=== PATIENT | female | born 1955 | race American Indian/Alaskan Native ===

== ENCOUNTER 2016-09-23 01:00 | Emergency (ER) | payer MEDICARE, OTHER ==
[2016-09-23 01:00] VITALS: BMI 31.6
[2016-09-23 01:27] VITALS: O2SAT 100
--- NOTE | 2016-09-23 01:52 | C.PDOC ---
History Of Present Illness 61 year old patient, with a past medical history of Anxiety, Arthritis, Back Problems, Bronchitis, Depression, Hypercholesterolemia, and Sleep Apnea, presents to the ED complaining of diffuse body pain/musle spasms, particularly in her neck, upper back and chest. Patient admits this pain is similar to prior chronic pain symptoms, but more intense in nature. Patient typically takes Endocet for pain, ran out of medication and can only get refill tomorrow. She denies SOB, abdominal pain, nausea/vomiting/diarrhea, cough, fever. Time Seen by Provider: 09/23/16 01:48 Chief Complaint (Nursing): Chest Pain History Per: Patient History/Exam Limitations: no limitations Current Symptoms Are (Timing): Still Present Severity: Moderate Quality: "Pain" Exacerbating Factors: Movement Alleviating Factors: Other (endocet) Past Medical History Reviewed: Historical Data, Nursing Documentation, Vital Signs Vital Signs: Last Vital Signs Temp 98 F 09/23/16 01:20 Pulse 72 09/23/16 01:20 Resp 20 09/23/16 01:20 BP 131/71 09/23/16 01:20 Pulse Ox 100 09/23/16 03:39 - Medical History PMH: Anxiety, Arthritis, Back Problems, Bronchitis, Depression, Hypercholesterolemia, Sleep Apnea Surgical History: Back Surgery - [facility] Procedures INJECT/INFUSE NEC (11/15/13) Family History: States: No Known Family Hx - Social History Hx Tobacco Use: No Hx Alcohol Use: No Hx Substance Use: No - Immunization History Hx Tetanus Toxoid Vaccination: Yes Hx Influenza Vaccination: Yes Hx Pneumococcal Vaccination: No Review Of Systems Except As Marked, All Systems Reviewed And Found Negative. Cardiovascular: Positive for: Chest Pain. Negative for: Palpitations Respiratory: Negative for: Cough, Shortness of Breath Gastrointestinal: Negative for: Nausea, Vomiting, Abdominal Pain, Diarrhea Musculoskeletal: Positive for: Neck Pain, Back Pain Skin: Negative for: Rash Physical Exam - Physical Exam Appears: Well, Non-toxic, No Acute Distress, Other (speaking in full sentences) Skin: Warm, Dry, No Rash Head: Normacephalic Eye(s): bilateral: Normal Inspection Oral Mucosa: Moist Neck: Normal, Normal ROM, No Midline Cervical Tenderness, No Paracervical Tenderness, No Step Off Deformity, Supple Chest: Symmetrical Cardiovascular: Rhythm Regular Respiratory: Normal Breath Sounds, No Rales, No Rhonchi, No Wheezing Gastrointestinal/Abdominal: Normal Exam, Bowel Sounds, Soft, No Tenderness Back: Normal Inspection, Paraspinal Tenderness (lower cervical/upper thoracics) Extremity: Normal ROM, No Pedal Edema, No Calf Tenderness Extremity: Bilateral: Atraumatic, Normal Color And Temperature, Normal ROM Neurological/Psych: Oriented x3 Gait: Steady ED Course And Treatment ECG: Interpreted By Me, Viewed By Me (NSR 66 bpm, normal axis, no acute ST/T wave changes) ECG Interpretation: No Acute Changes O2 Sat by Pulse Oximetry: 100 (RA) Pulse Ox Interpretation: Normal - Radiology CXR: Interpreted by Me, Viewed By Me (no infiltrates/effusions) Progress Note: EKG, CXR ordered and reviewed. Patient given IM Toradol and PO Valium. Albuterol nebulizer treatment given at her request - no wheezing on physical exam. Reevaluation Time: 03:40 Reassessment Condition: Improved (On reassessment, patient is sleeping on stretcher comfortably. Patient easily arousable, states her pain has improved and she feels better. Rxs for Naprosyn and Valium given, as well as albuterol neb ampules and nebhulizer facemask. Patient instructed to follow up with PMD in 1-2 days, and understands she should return to ED if symptoms worsen.) Medical Decision Making Medical Decision Makin08/25/2016 2 08/25/2016 CLONAZEPAM 1 MG TABLET 90.0 30 LE DEL [id number] [place] ( [id number]) 0 [place] 08/25/2016 2 08/25/2016 ENDOCET 10-325 MG TABLET 90.0 30 MARTA CASANOVA [id number] [place] ( [id number]) 0 45.0 [place] 07/28/2016 2 07/28/2016 ZOLPIDEM TARTRATE 10 MG TABLET 30.0 30 MARTA DUN [id number] [place] ([id number]) 0 [place] 07/28/2016 2 07/28/2016 ENDOCET 10-325 MG TABLET 90.0 30 MARTA CASANOVA [id number] [place] ( [id number]) 0 45.0 [place] 07/22/2016 2 07/22/2016 CLONAZEPAM 1 MG TABLET 90.0 30 LE DEL [id number] [place] ( [id number]) 0 [place] Disposition Counseled Patient/Family Regarding: Studies Performed, Diagnosis, Need For Followup, Rx Given - Disposition Referrals: Tenzin Ba MD [Staff Provider] - Disposition Time: 03:40 Condition: STABLE Additional Instructions: FOLLOW UP WITH YOUR DOCTOR IN 1-2 DAYS USE MEDICATIONS NEEDED RETURN TO ER IF SYMPTOMS WORSEN Prescriptions: Albuterol 0.5% [Albuterol 0.5% Inhal Christin (2.5 mg/0.5 ml) UD] 2.5 mg IH Q6 PRN # 1 bottle PRN Reason: Wheezing Naproxen [Naprosyn Tab] 375 mg PO BID PRN #15 tab PRN Reason: pain diaZEpam [Valium] 5 mg PO BID PRN #10 tab PRN Reason: muscle relaxant Instructions: Chronic Pain (ED) Print Language: PASHTO - POA Present On Arrival: None - Clinical Impression Clinical Impression: Muscle spasm, Chronic pain - Scribe Statement The provider has reviewed the documentation as recorded by the Davidibantony Sandy Provider Attestation: All medical record entries made by the Davidibantony were at my direction and personally dictated by me. I have reviewed the chart and agree that the record accurately reflects my personal performance of the history, physical exam, medical decision making, and the department course for this patient. I have also personally directed, reviewed, and agree with the discharge instructions and disposition.
[2016-09-23] MEDS ORDERED: Albuterol 0.083% Inhal Sol (2.5 mg/3 mL) UD IH STA (02:06)
[2016-09-23] MEDS ORDERED: Albuterol 0.083% Inhal Sol (2.5 mg/3 mL) UD ONE (02:21)
[2016-09-23 04:08] VITALS: BP 137/88; PULSE 78; RESP 16; TEMP 98.1
--- NOTE | 2016-09-23 08:39 | RAD ---
PROCEDURE: CHEST RADIOGRAPH, 1 VIEW HISTORY: Chest pain COMPARISON: None available. FINDINGS: LUNGS: Clear. PLEURA: No pneumothorax or pleural fluid seen. CARDIOVASCULAR: Normal. OSSEOUS STRUCTURES: No significant abnormalities. VISUALIZED UPPER ABDOMEN: Normal. OTHER FINDINGS: None. IMPRESSION: No active disease.
--- NOTE | 2016-09-23 11:39 | CARD ---
APPROVED REPORT EKG Measurement Heart [id number] <Conclusion> Normal sinus rhythm Moderate voltage criteria for LVH, may be normal variant Cannot rule out Septal infarct, age undetermined Abnormal ECG
== END 2016-09-23 04:14 | disposition home or self-care (01) ==
LOC: C.ER 01:00
DX: M62.838 Other muscle spasm (principal); G89.29 Other chronic pain
CPT/HCPCS: 71010; 93005; 94640; 96372; 99284; J1885

== ENCOUNTER 2017-04-10 13:41 | Emergency (ER) | payer OTHER, MEDICARE ==
[2017-04-10 13:41] VITALS: BMI 31.6
[2017-04-10 13:49] VITALS: TEMP 97.7
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
[2017-04-10] MEDS ORDERED: Bacitracin 500 Units/gm Oint Foilpak UD TOP ONE (15:14)
[2017-04-10] MEDS ORDERED: Bacitracin 500 Units/gm Oint Foilpak UD ONE (16:13)
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
[2017-04-10 21:00] VITALS: BP 115/85; PULSE 84; RESP 16
--- NOTE | 2017-04-11 08:01 | RAD ---
Bilateral hips and right hip four views History: Fall. Comparison: None available. Findings: Right hip: Right total hip arthroplasty. Prominent heterotopic bone and productive bone formation seen along the lateral aspect of the prosthesis. Periacetabular lucency adjacent to the right metallic acetabulum. Additional lucency seen adjacent to the proximal femoral shaft component. Left hip: Moderate degenerative changes with joint space narrowing and subchondral sclerosis. Productive change at the pubic symphysis with bony sclerosis. Postsurgical changes in the spine. Calcified phleboliths in the pelvis. Osteitis pubis. Impression: Postsurgical and degenerative changes as described. If pain persists, consider further evaluation CT scan or MRI.
[2017-04-14 23:21] VITALS: O2SAT 100
== END 2017-04-10 20:59 | disposition home or self-care (01) ==
LOC: C.ER 13:41
DX: S83.91XA Sprain of unspecified site of right knee, initial encounter (principal); S80.211A Abrasion, right knee, initial encounter; M54.2 Cervicalgia; V09.00XA Pedestrian injured in nontraffic accident involving unspecified motor vehicles, initial encounter; Y92.481 Parking lot as the place of occurrence of the external cause
CPT/HCPCS: 72125; 73521; 73562; 73700; 90471; 90715; 96372; 99284; J1885

== ENCOUNTER 2017-05-16 07:42 | Emergency (ER) | payer MEDICARE, OTHER ==
--- NOTE | 2017-05-16 08:06 | C.PDOC ---
History Of Present Illness 62 y/o female hx of chronic back pain , hip replacement, and back surgeries. The patient presents to the ED c/o of back/hip pain. The patient states she is scheduled for an appointment on Thursday with [place] pain management. The patient denies dizziness, swelling, rash, nausea, vomiting, and fever. Patient ambulates with cane. Time Seen by Provider: 05/16/17 07:48 Chief Complaint (Nursing): Back Pain History Per: Patient History/Exam Limitations: no limitations Onset/Duration Of Symptoms: Days Current Symptoms Are (Timing): Still Present Severity: Mild Previous Symptoms: Back Pain Recent travel outside of the [place]: No Additional History Per: Patient Past Medical History Reviewed: Historical Data, Nursing Documentation, Vital Signs Vital Signs: Last Vital Signs Temp 98.1 F 05/16/17 09:16 Pulse 80 05/16/17 09:16 Resp 18 05/16/17 09:16 BP 102/60 05/16/17 09:16 Pulse Ox 99 05/16/17 09:16 - Medical History PMH: Anxiety, Arthritis, Back Problems, Bronchitis, Depression, Hypercholesterolemia, Sleep Apnea Denies: Diabetes, Hepatitis, HIV, HTN, Seizures, Sexually Transmitted Disease Surgical History: Back Surgery Other Surgeries: hip surgery - [facility] Procedures INJECT/INFUSE NEC (11/15/13) Family History: States: No Known Family Hx - Social History Hx Tobacco Use: No Hx Alcohol Use: No Hx Substance Use: No - Immunization History Hx Tetanus Toxoid Vaccination: Yes Hx Influenza Vaccination: Yes Hx Pneumococcal Vaccination: No Review Of Systems Except As Marked, All Systems Reviewed And Found Negative. Constitutional: Negative for: Fever Cardiovascular: Negative for: Chest Pain Respiratory: Negative for: Cough, Shortness of Breath Gastrointestinal: Negative for: Nausea, Vomiting Musculoskeletal: Positive for: Back Pain Skin: Negative for: Rash Physical Exam - Physical Exam Appears: Non-toxic, Other (mild painful distress ) Skin: Warm, Dry Head: Atraumatic, Normacephalic Eye(s): bilateral: PERRL Oral Mucosa: Moist Neck: Supple Chest: Symmetrical Cardiovascular: Rhythm Regular Respiratory: Normal Breath Sounds, No Rales, No Rhonchi, No Wheezing Gastrointestinal/Abdominal: Soft, No Tenderness, No Guarding, No Rebound Back: Paraspinal Tenderness, Straight Leg Raising (not able to lift up the right leg ), Other (diffused paralumbar tenderness) Extremity: Capillary Refill (2<sec.), Other (not able to lift up the right leg ) Neurological/Psych: Oriented x3, Normal Speech, Normal Cognition Gait: Other (a cane for assistance, and decreased not able to lift up the right leg) ED Course And Treatment O2 Sat by Pulse Oximetry: 98 (RA) Progress Note: Upon reassessment,the patient is afebrile. The patient is perscribed Toradol and Flexeril. The patient is advised to have 1-2 day follow up with her [employer]PER[employer] for further evaluation. Reassessment Condition: Improved Disposition Counseled Patient/Family Regarding: Diagnosis, Need For Followup, Rx Given - Disposition Referrals: [facility] [Outside] Disposition: HOME/ ROUTINE Disposition Time: 09:00 Condition: IMPROVED Additional Instructions: Follow up with Pain management for scheduled appointment on thursday Take medication as directed Prescriptions: Cyclobenzaprine [Cyclobenzaprine HCl] 10 mg PO Q8 PRN #12 tab PRN Reason: Pain, Mild (1-3) Naproxen [Naprosyn] 1 tab PO BID PRN #25 tab PRN Reason: Pain Instructions: Chronic Back Pain (ED) Forms: [facility] (Estonian) - POA Present On Arrival: None - Clinical Impression Clinical Impression: Low back pain, Chronic pain - PA / [employer] / Resident Statement MD/DO has examined the patient and agrees with the treatment plan. - Scribe Statement The provider has reviewed the documentation as recorded by the Scribantony Atkinson All medical record entries made by the Davidibantony were at my direction and personally dictated by me. I have reviewed the chart and agree that the record accurately reflects my personal performance of the history, physical exam, medical decision making, and the department course for this patient. I have also personally directed, reviewed, and agree with the discharge instructions and disposition.
[2017-05-16 08:07] VITALS: BMI 29.2
[2017-05-16 09:20] VITALS: BP 102/60; PULSE 80; RESP 18; TEMP 98.1
[2017-05-16 17:34] VITALS: O2SAT 98
== END 2017-05-16 09:20 | disposition home or self-care (01) ==
LOC: C.ER 07:42
DX: G89.29 Other chronic pain (principal); M54.5 Low back pain; E78.00 Pure hypercholesterolemia, unspecified
CPT/HCPCS: 96372; 99284; J1885

== ENCOUNTER 2017-07-31 12:02 | Emergency (ER) | payer OTHER ==
[2017-07-31 12:03] VITALS: BMI 31.6
== END 2017-07-31 12:35 | disposition left against medical advice (07) ==
LOC: C.ER 12:02
DX: Z02.89 Encounter for other administrative examinations (principal); M79.1 Myalgia

== ENCOUNTER 2017-09-22 17:43 | Inpatient (IN) | payer MEDICARE, OTHER ==
[2017-09-22 18:20] VITALS: BMI 29.2
[2017-09-22] MEDS ORDERED: Aspirin 325 mg EC Tablets PO STA (20:29)
[2017-09-22] MEDS ORDERED: Aspirin 325 mg EC Tablets PO ONE (20:43)
[2017-09-22 20:49] LABS: BASO # 0.1 K/uL (0.0-0.2); BASO % 1.2 % (0.0-2.0); EOS # 0.2 K/uL (0.0-0.7); HEMOGLOBIN 11.1 g/dL (11.0-16.0); LYMPH # 2.6 K/uL (1.0-4.3); LYMPH % 49.2 % (20.0-40.0); MEAN CELL VOLUME 85.3 fL (81.0-99.0); MEAN CORPUSCULAR HEMOGLOBIN 28.7 pg (27.0-31.0); MEAN CORPUSCULAR HGB CONC 33.7 g/dL (33.0-37.0); MEAN PLATELET VOLUME 6.4 fL (7.2-11.7); MONO # 0.4 K/uL (0.0-0.8); MONO % 6.7 % (0.0-10.0); NEUT # 2.1 K/uL (1.8-7.0); NEUT % 39.9 % (50.0-75.0); NRBC % 0.2 % (0.0-2.0); RBC 3.86 Mil/uL (3.80-5.20); WHITE BLOOD COUNT 5.3 K/uL (4.8-10.8)
[2017-09-22 20:59] LABS: PROTHROMBIN TIME 11.1 SECONDS (9.7-12.2)
[2017-09-22 21:02] LABS: CALCIUM 8.8 mg/dl (8.6-10.4); GFR AFRICAN-AMERICAN > 60; GFR NON-AFRICAN AMERICAN 50
--- NOTE | 2017-09-22 23:02 | C.PDOC ---
Time Seen by Provider: 09/22/17 20:15 Chief Complaint (Nursing): Chest Pain History Per: Patient Onset/Duration Of Symptoms: Hrs Current Symptoms Are (Timing): Still Present Severity: Moderate Quality: Tightness, "Pain" Associated Symptoms: Dyspnea Modifying Factors: Other Indicated Below Alleviating Factors: None Additional History Per: Prior Records Past Medical History Reviewed: Historical Data, Nursing Documentation, Vital Signs Vital Signs: Last Vital Signs Temp 97.8 F 09/22/17 18:21 Pulse 67 09/22/17 18:21 Resp 18 09/22/17 18:21 BP 123/80 09/22/17 18:21 Pulse Ox 100 09/22/17 18:21 - Medical History PMH: Anxiety, Arthritis, Back Problems, Bronchitis, Depression, Hypercholesterolemia, Sleep Apnea, Chronic Pain Surgical History: Back Surgery - [facility] Procedures INJECT/INFUSE NEC (11/15/13) Family History: States: Unknown Family Hx - Social History Hx Tobacco Use: No Hx Alcohol Use: No Hx Substance Use: No - Immunization History Hx Tetanus Toxoid Vaccination: Yes Hx Influenza Vaccination: Yes Hx Pneumococcal Vaccination: No Review Of Systems Except As Marked, All Systems Reviewed And Found Negative. Constitutional: Negative for: Fever, Weakness Cardiovascular: Positive for: Chest Pain Respiratory: Negative for: Hemoptysis Gastrointestinal: Negative for: Vomiting, Abdominal Pain Skin: Negative for: Rash Neurological: Negative for: Weakness, Numbness, Seizures, Altered Mental Status Physical Exam - Physical Exam Appears: Non-toxic, No Acute Distress Skin: Normal Color, Warm, Dry, No Rash Head: Atraumatic, Normacephalic Eye(s): bilateral: PERRL, EOMI Neck: Normal ROM, Supple Cardiovascular: Rhythm Regular Respiratory: Normal Breath Sounds, No Accessory Muscle Use Gastrointestinal/Abdominal: Soft, No Tenderness Extremity: Normal ROM, No Deformity Neurological/Psych: Oriented x3, Normal Motor, Normal Sensation ED Course And Treatment - Laboratory Results Result Diagrams: 09/22/17 20:40 09/22/17 20:40 ECG: Interpreted By Me, Viewed By Me ECG Rhythm: Sinus Rhythm, Nonspecific Changes ECG Interpretation: No Acute Changes Rate From EC O2 Sat by Pulse Oximetry: 100 Pulse Ox Interpretation: Normal - Radiology CXR: Interpreted by Me, Viewed By Me CXR Interpretation: Yes: No Acute Disease Progress - Interventions Interventions:: Observation - Medications Administered Oral: Aspirin - Data Reviewed Data Reviewed: Lab, Diagnostic imaging, EKG, Old records - Patient Status Patient status: Partially improved - Continuity of Care Discussed patient case with:: Patient, ED Nurse, PMD Disposition Discussed With : Tenzin Ba Comment: He accepted pt on his service. Doctor Will See Patient In The: Hospital Counseled Patient/Family Regarding: Studies Performed, Diagnosis - Disposition Disposition: HOSPITALIZED Disposition Time: 23:03 Condition: FAIR - Clinical Impression Clinical Impression: Chest pain
[2017-09-22 23:12] LABS: BLOOD UREA NITROGEN 17 mg/dL (7-17)
[2017-09-22 23:13] LABS: ALT/SGPT 58 U/L (9-52); AST/SGOT 53 U/L (14-36)
[2017-09-22] MEDS ORDERED: Morphine 4 MG/ML VIAL ONE (23:22)
[2017-09-23] MEDS ORDERED: Enoxaparin 40 mg Syringe SC ONE (00:52)
[2017-09-23] MEDS ORDERED: Enoxaparin 40 mg Syringe ONE (01:12)
--- NOTE | 2017-09-23 06:59 | RAD ---
Chest x-ray single frontal view History: Chest pain. Comparison: 09/23/2016 Findings: Mild venous congestion. Mild patchy increased markings at the left lung base which may represent confluence shadows with ribs and vessels. Tortuous aorta. Degenerative changes in the spine. Impression: Mild venous congestion. Mild patchy increased markings at the left lung base which may represent confluence shadows with ribs and vessels. Tortuous aorta.
[2017-09-23] MEDS: Ranolazine 500 mg Extended Release Tablets PO SCH ×2 (09:00→17:27)
[2017-09-23] MEDS ORDERED: Pneumococcal 23-Valent Vaccine IM ONE (09:39)
[2017-09-23] MEDS: Enoxaparin 40 mg Syringe SC SCH (10:22)
[2017-09-23] MEDS: Oxycodone/Acetaminophen 5/325 mg Tab PO PRN ×2 (11:51→18:23)
--- NOTE | 2017-09-23 12:51 | CP.PCM.HP ---
History of Present Illness - History of Present Illness History of Present Illness: admitted for ACS hx HTN, HLD , OBESITY pt known to Dr Ba work up in progress Present on Admission - Present on Admission Any Indicators Present on Admission: No History of DVT/PE: No History of Uncontrolled Diabetes: No Urinary Catheter: No Decubitus Ulcer Present: No History Surgical Site Infection Following: None Review of Systems - Review of Systems All systems: reviewed and no additional remarkable complaints except - Constitutional Constitutional: As Per HPI - EENT Eyes: absent: As Per HPI, Blind Spots, Blurred Vision, Change in Vision, Decreased Night Vision, Diplopia, Discharge, Dry Eye, Exophthalmos, Floaters, Irritation, Itchy Eyes, Loss of Peripheral Vision, Pain, Photophobia, Requires Corrective Lenses, Sees Flashes, Spots in Vision, Tunnel Vision, Other Visual Disturbances, Loss of Vision, Other Ears: absent: As Per HPI, Decreased Hearing, Ear Discharge, Ear Pain, Tinnitus, Abnormal Hearing, Disequilibrium, Dizziness, Other Nose/Mouth/Throat: absent: As Per HPI, Epistaxis, Nasal Congestion, Nasal Discharge, Nasal Obstruction, Nasal Trauma, Nose Pain, Post Nasal Drip, Sinus Pain, Sinus Pressure, Bleeding Gums, Change in Voice, Dental Pain, Dry Mouth, Dysphagia, Halitosis, Hoarsness, Lip Swelling, Mouth Lesions, Mouth Pain, Odynophagia, Sore Throat, Throat Swelling, Tongue Swelling, Facial Pain, Neck Pain, Neck Mass, Other - Breasts Breasts: absent: As Per HPI, Change in Shape, Mass, Pain, Nipple Discharge, Nipple Inversion, Skin Changes, Swelling, Other - Cardiovascular Cardiovascular: As Per HPI - Respiratory Respiratory: Dyspnea on Exertion - Gastrointestinal Gastrointestinal: absent: As Per HPI, Abdominal Pain, Belching, Bloating, Change in Bowel Habits, Change in Stool Character, Coffee Ground Emesis, Constipation, Cramping, Diarrhea, Dyspepsia, Dysphagia, Early Satiety, Excessive Flatus, Fecal Incontinence, Heartburn, Hematemesis, Hematochezia, Loose Stools, Melena, Nausea, Odynophagia, Temesmus, Vomiting, Other - Reproductive: Female Reproductive:Female: absent: As Per HPI, Amenorrhea, Amenorrhea/ Control, Currently Menstual, Cycle <21 Days, Cycle >35 Days, Cycle Variable, Menses 1-7 Days, Menses >/= 8 Days, Menses Variable, Cycle > 4 Weeks Between, No Menses for 6 Months, Heavy Menses, Light Menses, Normal Menses, Spotting Between Cycles , S/P Hysterectomy, Menopausal, Post Menopausal, Premenarche, Abnormal Vaginal Bleeding, Dysmenorrhea, Dyspareunia, Genital Lesions, Genital Pruritis, Pelvic Pain, Prolapse Symptoms, Sexual Dysfunction, Vaginal Discharge, Vaginal Dryness , Vaginal Odor, Vaginal Pruritis, Other - Menstruation Menstruation: absent: As Per HPI, Amenorrhea, Amenorrhea/ Control, Currently Menstual, Cycle <21 Days, Cycle >35 Days, Cycle Variable, Menses 1-7 Days, Menses >/= 8 Days, Menses Variable, Cycle > 4 Weeks Between, No Menses for 6 Months, Heavy Menses, Light Menses, Normal Menses, Spotting Between Cycles , S/P Hysterectomy, Menopausal, Post Menopausal, Premenarche, Abnormal Vaginal Bleeding, Dysmenorrhea, Other - Musculoskeletal Musculoskeletal: As Per HPI - Integumentary Integumentary: absent: As Per HPI, Acne, Alopecia, Bleeding Lesions, Change in Hair, Change in Nails, Change in Pigmentation, Changing Lesions, Dry Skin, Erythema, Furuncle, Hirsutism, Lesions, New Lesions, Non-Healing Lesions, Photosensitivity, Pruritus, Rash, Skin Pain, Skin Ulcer, Sores, Striae, Swelling , Unusual Bruising, Wounds, Jaundice, Other - Neurological Neurological: As Per HPI - Psychiatric Psychiatric: absent: As Per HPI, Abnormal Sleep Pattern, Anhedonia, Anxiety, Auditory Hallucinations, Behavioral Changes, Change in Appetite, Change in Libido, Confusion, Depression, Difficulty Concentrating, Hallucinations, Homicidal Ideation, Hopelessness, Irritability, Memory Loss, Mood Swings, Panic Attacks, Paranoia, Suicidal Ideation, Visual Hallucinations, Tactile Hallucinations, Other - Endocrine Endocrine: absent: As Per HPI, Change in Body Appearance, Change in Libido, Cold Intolorance, Deepening of Voice, Excessive Sweating, Fatigue, Flushing, Heat Intolorance, Increase in Ring/Shoe/Hat Size, Palpitations, Polydipsia, Polyphagia, Polyuria, Other - Hematologic/Lymphatic Hematologic: absent: As Per HPI, Easy Bleeding, Easy Bruising, Lymphadenopathy, Other Past Patient History - Infectious Disease Hx of Infectious Diseases: None - Past Medical History & Family History Past Medical History?: Yes - Past Social History Smoking Status: Never Smoked - CARDIAC Hx Hypercholesterolemia: Yes - PULMONARY Hx Bronchitis: Yes Hx Sleep Apnea: Yes - NEUROLOGICAL Hx Seizures: No - HEMATOLOGICAL/ONCOLOGICAL Hx Human Immunodeficiency Virus (HIV): No - MUSCULOSKELETAL/RHEUMATOLOGICAL Hx Arthritis: Yes Hx Falls: No - GENITOURINARY/GYNECOLOGICAL Hx Sexually Transmitted Disorders: No - PSYCHIATRIC Hx Anxiety: Yes Hx Depression: Yes Hx Substance Use: No - SURGICAL HISTORY Other/Comment: HIP SURGERY - ANESTHESIA Hx Anesthesia: Yes Hx Anesthesia Reactions: No Hx Malignant Hyperthermia: No Meds Allergies/Adverse Reactions: Allergies Allergy/AdvReac Type Severity Reaction Status Date / Time tizanidine Allergy Intermediate RASH Verified 09/22/17 18:19 Physical Exam - Constitutional Appears: Chronically Ill - Head Exam Head Exam: ATRAUMATIC, NORMOCEPHALIC - Eye Exam Eye Exam: PERRL. absent: Scleral icterus - ENT Exam ENT Exam: Mucous Membranes Dry, Normal External Ear Exam - Neck Exam Neck exam: Negative for: Lymphadenopathy - Respiratory Exam Respiratory Exam: Decreased Breath Sounds, Clear to Auscultation Bilateral - Cardiovascular Exam Cardiovascular Exam: REGULAR RHYTHM, +S1, +S2 - GI/Abdominal Exam GI & Abdominal Exam: Diminished Bowel Sounds, Soft. absent: Tenderness - Rectal Exam Rectal Exam: Deferred - Exam Exam: NORMAL INSPECTION - Extremities Exam Extremities exam: Positive for: pedal pulses present. Negative for: calf tenderness, pedal edema, tenderness - Back Exam Back exam: absent: CVA tenderness (L), CVA tenderness (R) - Neurological Exam Neurological exam: Alert, CN II-XII Intact, Oriented x3, Reflexes Normal - Psychiatric Exam Psychiatric exam: Depressed - Skin Skin Exam: Dry Results - Vital Signs Recent Vital Signs: Last Vital Signs Temp 97.8 F 09/23/17 07:40 Pulse 75 09/23/17 10:00 Resp 14 09/23/17 08:00 BP 108/69 09/23/17 10:25 Pulse Ox 98 09/23/17 07:03 - Labs Result Diagrams: 09/23/17 14:46 09/23/17 14:46 Labs: Laboratory Results - last 24 hr 09/22/17 09/22/17 09/22/17 20:40 20:40 20:40 WBC 5.3 RBC 3.86 Hgb 11.1 Hct 32.9 L MCV 85.3 MCH 28.7 MCHC 33.7 RDW 15.0 H Plt Count 281 MPV 6.4 L Neut % (Auto) 39.9 L Lymph % (Auto) 49.2 H Cache % (Auto) 6.7 Eos % (Auto) 3.0 Baso % (Auto) 1.2 Neut # (Auto) 2.1 Lymph # (Auto) 2.6 Cache # (Auto) 0.4 Eos # (Auto) 0.2 Baso # (Auto) 0.1 PT 11.1 INR 1.0 APTT 31 Sodium 140 Potassium 4.7 Chloride 106 Carbon Dioxide 22 Anion Gap 17 BUN 17 Creatinine 1.1 Est GFR ( Amer) > 60 Est GFR (Non-Af Amer) 50 Random Glucose 78 Calcium 8.8 Total Bilirubin 0.7 AST 53 H ALT 58 H D Alkaline Phosphatase 82 Troponin I < 0.0120 NT-Pro-B Natriuret Pep 13.0 Total Protein 8.2 Albumin 4.0 Globulin 4.2 H Albumin/Globulin Ratio 1.0 09/23/17 04:22 WBC RBC Hgb Hct MCV MCH MCHC RDW Plt Count MPV Neut % (Auto) Lymph % (Auto) Cache % (Auto) Eos % (Auto) Baso % (Auto) Neut # (Auto) Lymph # (Auto) Cache # (Auto) Eos # (Auto) Baso # (Auto) PT INR APTT Sodium Potassium Chloride Carbon Dioxide Anion Gap BUN Creatinine Est GFR ( Amer) Est GFR (Non-Af Amer) Random Glucose Calcium Total Bilirubin AST ALT Alkaline Phosphatase Troponin I < 0.0120 NT-Pro-B Natriuret Pep Total Protein Albumin Globulin Albumin/Globulin Ratio Assessment & Plan (1) Chest pain Status: Acute (2) Anxiety Status: Acute (3) Cervicalgia Status: Acute (4) Chronic pain Status: Acute (5) Depression (emotion) Status: Acute (6) Joint pain Status: Acute (7) Low back pain Status: Acute - Assessment and Plan (Free Text) Assessment: cont tele monitoring will likely need cardiac cath Decision To Admit - Pt Status Changed To: Hospital Disposition Of: Inpatient - Admit Certification Admit to Inpatient:: After my assessment, the patient will require hospitalization for at least two midnights. This is because of the severity of symptoms shown, intensity of services needed, and/or the medical risk in this patient being treated as an outpatient. - InPatient: Physician Admission Certification:: i certify patient requires in patient care - . Bed Request Type: Telemetry
[2017-09-23 14:59] LABS: HEMOGLOBIN 11.7 g/dL (11.0-16.0); MEAN CELL VOLUME 85.6 fL (81.0-99.0); MEAN CORPUSCULAR HEMOGLOBIN 28.4 pg (27.0-31.0); MEAN CORPUSCULAR HGB CONC 33.2 g/dL (33.0-37.0); MEAN PLATELET VOLUME 6.1 fL (7.2-11.7); RBC 4.11 Mil/uL (3.80-5.20); RED CELL DISTRIBUTION WIDTH 15.5 % (11.5-14.5); WHITE BLOOD COUNT 5.3 K/uL (4.8-10.8)
[2017-09-23 15:14] LABS: BLOOD UREA NITROGEN 16 mg/dL (7-17); CALCIUM 9.2 mg/dl (8.6-10.4); GFR AFRICAN-AMERICAN 55; GFR NON-AFRICAN AMERICAN 46
[2017-09-23 15:21] LABS: CK-MB 1.49 ng/mL (0.0-3.38)
[2017-09-23] MEDS: POLYETHYLENE GLYCOL 3350 17 GM/Dose PACKET PO SCH (18:20)
--- NOTE | 2017-09-23 20:46 | CARD ---
APPROVED REPORT EKG Measurement Heart [id number] <Conclusion> Normal sinus rhythm Moderate voltage criteria for LVH, may be normal variant Borderline ECG
[2017-09-23] MEDS ORDERED: Magnesium Hydroxide Susp 30 ml UD PO ONE (22:30)
--- NOTE | 2017-09-23 22:39 | CP.PCM.CON ---
History of Present Illness - History of Present Illness History of Present Illness: CC chest pain HPI 62 y/o AAF admitted with on and squeezing mid-sternal chest pain Review of Systems - Cardiovascular Cardiovascular: Chest Pain, Dyspnea on Exertion - Respiratory Respiratory: absent: Chest Congestion, Pain with Coughing - Gastrointestinal Gastrointestinal: absent: Change in Bowel Habits - Musculoskeletal Musculoskeletal: Back Pain Past Patient History - Infectious Disease Hx of Infectious Diseases: None - Past Medical History & Family History Past Medical History?: Yes - Past Social History Smoking Status: Never Smoked - CARDIAC Hx Hypercholesterolemia: Yes - PULMONARY Hx Bronchitis: Yes Hx Sleep Apnea: Yes - NEUROLOGICAL Hx Seizures: No - HEMATOLOGICAL/ONCOLOGICAL Hx Human Immunodeficiency Virus (HIV): No - MUSCULOSKELETAL/RHEUMATOLOGICAL Hx Arthritis: Yes Hx Falls: No - GENITOURINARY/GYNECOLOGICAL Hx Sexually Transmitted Disorders: No - PSYCHIATRIC Hx Anxiety: Yes Hx Depression: Yes Hx Substance Use: No - SURGICAL HISTORY Other/Comment: HIP SURGERY - ANESTHESIA Hx Anesthesia: Yes Hx Anesthesia Reactions: No Hx Malignant Hyperthermia: No Meds Allergies/Adverse Reactions: Allergies Allergy/AdvReac Type Severity Reaction Status Date / Time tizanidine Allergy Intermediate RASH Verified 09/22/17 18:19 - Medications Medications: Current Medications Enoxaparin Sodium (Lovenox) 40 mg SC DAILY [facility] Last Admin: 09/23/17 10:22 Dose: 40 mg Metoprolol Tartrate (Lopressor) 25 mg PO BID [facility] Last Admin: 09/23/17 18:24 Dose: 25 mg Oxycodone/Acetaminophen (Percocet 5/325 Mg Tab) 1 tab PO Q6H PRN PRN Reason: Pain, moderate (4-7) Stop: 09/26/17 11:24 Last Admin: 09/23/17 18:23 Dose: 1 tab Pneumococcal Polyvalent Vaccine (Pneumovax 23 Vaccine) 0.5 ml IM .ONCE ONE Stop: 09/25/17 12:01 Polyethylene Glycol (Miralax) 17 gm PO DAILY [facility] Last Admin: 09/23/17 18:20 Dose: 17 gm Ranolazine (Ranexa) 500 mg PO BID [facility] Last Admin: 09/23/17 17:27 Dose: 500 mg Rosuvastatin Calcium (Crestor) 10 mg PO HS [facility] Last Admin: 09/23/17 21:50 Dose: 10 mg Zolpidem Tartrate (Ambien) 5 mg PO HS PRN PRN Reason: Insomnia Last Admin: 09/23/17 21:50 Dose: 5 mg Physical Exam - Constitutional Appears: Non-toxic - Head Exam Head Exam: NORMAL INSPECTION - Eye Exam Eye Exam: absent: Scleral icterus - ENT Exam ENT Exam: Mucous Membranes Moist - Neck Exam Neck exam: Positive for: Full Rom - Respiratory Exam Respiratory Exam: NORMAL BREATHING PATTERN - Cardiovascular Exam Cardiovascular Exam: REGULAR RHYTHM - GI/Abdominal Exam GI & Abdominal Exam: Normal Bowel Sounds - Extremities Exam Extremities exam: Positive for: pedal edema - Neurological Exam Neurological exam: Alert, Oriented x3 Results - Vital Signs Recent Vital Signs: Last Vital Signs Temp 98.1 F 09/23/17 20:00 Pulse 52 L 09/23/17 21:38 Resp 16 09/23/17 21:38 BP 110/67 09/23/17 21:38 Pulse Ox 98 09/23/17 07:03 - Labs Result Diagrams: 09/23/17 14:46 09/23/17 14:46 Labs: Laboratory Results - last 24 hr 09/22/17 09/22/17 09/23/17 20:40 20:40 04:22 WBC RBC Hgb Hct MCV MCH MCHC RDW Plt Count MPV PT 11.1 INR 1.0 APTT 31 Sodium 140 Potassium 4.7 Chloride 106 Carbon Dioxide 22 Anion Gap 17 BUN 17 Creatinine Est GFR ( Amer) Est GFR (Non-Af Amer) Random Glucose Calcium AST 53 H ALT 58 H D Alkaline Phosphatase 82 Total Creatine Kinase CK-MB (Mass) Troponin I < 0.0120 < 0.0120 Total Protein 8.2 Albumin 4.0 Globulin 4.2 H Albumin/Globulin Ratio 1.0 09/23/17 09/23/17 14:46 14:46 WBC 5.3 RBC 4.11 Hgb 11.7 Hct 35.2 MCV 85.6 MCH 28.4 MCHC 33.2 RDW 15.5 H Plt Count 279 MPV 6.1 L PT INR APTT Sodium 140 Potassium 4.9 Chloride 104 Carbon Dioxide 27 Anion Gap 14 BUN 16 Creatinine 1.2 Est GFR ( Amer) 55 Est GFR (Non-Af Amer) 46 Random Glucose 85 Calcium 9.2 AST ALT Alkaline Phosphatase Total Creatine Kinase 251 H CK-MB (Mass) 1.49 Troponin I < 0.0120 Total Protein Albumin Globulin Albumin/Globulin Ratio Assessment & Plan - Assessment and Plan (Free Text) Assessment: ACS Chronic low back pain Plan: trops q6h x 3 w/ ekg echo lexiscan - Date & Time Date: 09/23/17 Time: 09:40
[2017-09-24] MEDS ORDERED: Magnesium Hydroxide Susp 30 ml UD PO ONE (02:45)
[2017-09-24] MEDS: Oxycodone/Acetaminophen 5/325 mg Tab PO PRN ×3 (02:58→21:14)
[2017-09-24] MEDS ORDERED: DiphenhydrAMINE 50 mg/ml Inj IVP ONE (03:09)
[2017-09-24] MEDS: POLYETHYLENE GLYCOL 3350 17 GM/Dose PACKET PO SCH (12:30)
[2017-09-24] MEDS: Ranolazine 500 mg Extended Release Tablets PO SCH ×2 (12:30→18:11)
[2017-09-24] MEDS: Enoxaparin 40 mg Syringe SC SCH (13:20)
--- NOTE | 2017-09-24 19:02 | CP.PCM.PN ---
Subjective - Date & Time of Evaluation Date of Evaluation: 09/24/17 Time of Evaluation: 08:00 - Subjective Subjective: c/o constipation chest pain on and off had stress test - await results of myoview Objective - Vital Signs/Intake and Output Vital Signs (last 24 hours): Temp Pulse Resp BP Pulse Ox 98.2 F 56 L 20 121/68 98 09/24/17 14:00 09/24/17 08:00 09/24/17 06:00 09/24/17 18:11 09/23/17 07:03 Intake and Output: 09/24/17 09/25/17 18:59 06:59 Intake Total 0 Output Total 0 Balance 0 - Medications Medications: Current Medications Enoxaparin Sodium (Lovenox) 40 mg SC DAILY [facility] Last Admin: 09/24/17 13:20 Dose: 40 mg Lactulose (Enulose) 20 gm PO QID [facility] Last Admin: 09/24/17 18:11 Dose: 20 gm Metoprolol Tartrate (Lopressor) 25 mg PO BID [facility] Last Admin: 09/24/17 18:11 Dose: 25 mg Oxycodone/Acetaminophen (Percocet 5/325 Mg Tab) 1 tab PO Q6H PRN PRN Reason: Pain, moderate (4-7) Stop: 09/26/17 11:24 Last Admin: 09/24/17 13:21 Dose: 1 tab Pneumococcal Polyvalent Vaccine (Pneumovax 23 Vaccine) 0.5 ml IM .ONCE ONE Stop: 09/25/17 12:01 Polyethylene Glycol (Miralax) 17 gm PO DAILY [facility] Last Admin: 09/24/17 12:30 Dose: Not Given Ranolazine (Ranexa) 500 mg PO BID [facility] Last Admin: 09/24/17 18:11 Dose: 500 mg Rosuvastatin Calcium (Crestor) 10 mg PO HS [facility] Last Admin: 09/23/17 21:50 Dose: 10 mg Zolpidem Tartrate (Ambien) 5 mg PO HS PRN PRN Reason: Insomnia Last Admin: 09/23/17 21:50 Dose: 5 mg - Labs Labs: 09/23/17 14:46 09/23/17 14:46 PT 11.1 SECONDS (9.7-12.2) 09/22/17 20:40 INR 1.0 09/22/17 20:40 APTT 31 SECONDS (21-34) 09/22/17 20:40 - Constitutional Appears: Non-toxic, Chronically Ill - Head Exam Head Exam: NORMOCEPHALIC - Eye Exam Eye Exam: PERRL - ENT Exam ENT Exam: Mucous Membranes Dry - Neck Exam Neck Exam: absent: Lymphadenopathy - Respiratory Exam Respiratory Exam: Decreased Breath Sounds - Cardiovascular Exam Cardiovascular Exam: REGULAR RHYTHM - GI/Abdominal Exam GI & Abdominal Exam: Distended, Soft - Rectal Exam Rectal Exam: Deferred - Exam Exam: NORMAL INSPECTION - Extremities Exam Extremities Exam: absent: Pedal Edema - Back Exam Back Exam: absent: CVA tenderness (L), CVA tenderness (R) - Neurological Exam Neurological Exam: Alert, Awake, Oriented x3 Neuro motor strength exam: Left Upper Extremity: 4, Right Upper Extremity: 4, Left Lower Extremity: 4, Right Lower Extremity: 4 - Psychiatric Exam Psychiatric exam: Normal Mood - Skin Skin Exam: Dry Assessment and Plan (1) Chest pain Status: Acute (2) Anxiety Status: Acute (3) Cervicalgia Status: Acute (4) Chronic pain Status: Acute (5) Depression (emotion) Status: Acute (6) Joint pain Status: Acute (7) Low back pain Status: Acute - Assessment and Plan (Free Text) Assessment: await myoview stress d/c when clear by cardio
[2017-09-25] MEDS ORDERED: DiphenhydrAMINE 50 mg/ml Inj IVP STA (00:12)
[2017-09-25 09:01] VITALS: RESP 16
[2017-09-25] MEDS: Ranolazine 500 mg Extended Release Tablets PO SCH (09:11)
[2017-09-25] MEDS: Enoxaparin 40 mg Syringe SC SCH (09:11)
--- NOTE | 2017-09-25 09:24 | CARD ---
APPROVED REPORT Protocol: LEXISCAN Test Type: LEXISCAN Test Indications: CHEST PAIN Medications: LIST Target HR: 159 bpm Resting ECG: NSR Resting Heart Rate: 58 bpm Resting Blood Pressure: 132/80mmHg submaximum (85%): 135 bpm TEST SUMMARY [id number]:01..1.056/.0. PREINFSNHYPERV.09:[id number]/80.0. INFUSIONDOSE 100:300.00.01.055/.0. [id number]:[id number]/80.0. PROCEDURE Pharmacologic stress testing was performed using 0.4mg per 5ml of regadenoson given intravenously over 7-10 seconds. Reversal agent aminophyline 100 mg, given intravenously for Headache. POST EXERCISE Reason for Termination: Protocol Completed Target HR: No Max HR: 55 bpm 44% of Maximum Predicted HR: 159 bpm Exercise duration: 00:30 min:sec, 0 Stage Exercise capacity: 1.0METs Max Blood Pressure: 132/80mmHg Blood Pressure response to exercise: normal resting BP - appropriate response Heart Rate response to exercise: appropriate Chest Pain: No, none Angina index: 0 Arrhythmia: No, none ST Change: No, none Deviation: 0 mm INTERPRETATION Stress EKG Conclusion: NEGATIVE LEXISCAN STRESS TEST NORMAL BP RESPONSE TO LEXISCAN NUCLEAR STUDIES TO BE READ SEPARATELY EXAM: Myocardial Perfusion STRESS/REST Imaging Protocol The imaging protocol used to acquire images was Stress Tc-99m/rest Tc-99m 1 day Rest Spect myocardial perfusion imaging was performed in supine position 45 minutes following the injection of 32.3 mCi of Tc-99 Myoview. Gated Stress Spect was performed 45 minutes after intravenous 13.1 mCi Tc-99 Myoview injection. The images were gated to evaluate regional wall motion and calculate ventricular ejection fraction.Images were reconstructed using backfilter projection method in short horizontal and verticle long axis. Spect slices were generated. RESTING DATA EDV60.29ygWO7.20L/min ESV10.00mlMyocardial Tilm921.00g Av. Heart Rate64.00bpm EF83.00% STRESS DATA EDV58.31jxJO7.80L/min ESV12.00mlMyocardial Tuzs275.00g EF79.00% Regional WT score at stress:2.00 Regional WM score at stress:0.00 Summed WT score at stress:19.00 Av. Heart Rate61.00bpmSummed WM score at stress:0.00 LV Perf. Quant 17 Seg. SSS0.00 17 Seg. SRS0.00 17 Seg. SDS0.00 Stress Defect Extent (% LAD)0.00Rest Defect Extent (% LAD)0.00Rev. Defect Extent (% LAD)0.00 Stress Defect Extent (% LCX)0.00Rest Defect Extent (% LCX)0.00Rev. Defect Extent (% LCX)0.00 Stress Defect Extent (% RCA)0.00Rest Defect Extent (% RCA)0.00Rev. Defect Extent (% RCA)0.00 Stress Defect Extent (% GHULAM)0.00Rest Defect Extent (% GHULAM)0.00Rev. Defect Extent (% GHULAM)0.00 IMPRESSION Normal Myocardial Perfusion exercise stress study Left Ventricle LV Size/Shape: The left ventricle is normal size. LV Function:Left ventricle systolic function is normal. The Ejection Fraction is >70%. Regional Wall Motion:There is normal left ventricular wall motion. Metabolism/Perfusion Defects: There is no scan evidence of reversible ischemia noted. Conclusion 1. There is no scan evidence of reversible ischemia noted. 2. Left ventricle systolic function is normal. 3. The Ejection Fraction is >70%.
--- NOTE | 2017-09-25 11:13 | CP.PCM.PN ---
Subjective - Date & Time of Evaluation Date of Evaluation: 09/25/17 Time of Evaluation: 07:00 - Subjective Subjective: awaiting cardiology clearance no chest pain Objective - Vital Signs/Intake and Output Vital Signs (last 24 hours): Temp Pulse Resp BP Pulse Ox 98.7 F 66 16 99/69 L 96 09/25/17 08:00 09/25/17 10:15 09/25/17 10:15 09/25/17 10:15 09/25/17 08:00 Intake and Output: 09/25/17 09/25/17 06:59 18:59 Intake Total 480 Balance 480 - Medications Medications: Current Medications Enoxaparin Sodium (Lovenox) 40 mg SC DAILY [facility] Last Admin: 09/25/17 09:11 Dose: 40 mg Lactulose (Enulose) 20 gm PO QID [facility] Last Admin: 09/25/17 09:11 Dose: 20 gm Metoprolol Tartrate (Lopressor) 25 mg PO BID [facility] Last Admin: 09/25/17 09:12 Dose: 25 mg Oxycodone/Acetaminophen (Percocet 5/325 Mg Tab) 1 tab PO Q6H PRN PRN Reason: Pain, moderate (4-7) Stop: 09/26/17 11:24 Last Admin: 09/24/17 21:14 Dose: 1 tab Pneumococcal Polyvalent Vaccine (Pneumovax 23 Vaccine) 0.5 ml IM .ONCE ONE Stop: 09/25/17 12:01 Ranolazine (Ranexa) 500 mg PO BID [facility] Last Admin: 09/25/17 09:11 Dose: 500 mg Rosuvastatin Calcium (Crestor) 10 mg PO HS [facility] Last Admin: 09/24/17 21:13 Dose: 10 mg Zolpidem Tartrate (Ambien) 5 mg PO HS PRN PRN Reason: Insomnia Last Admin: 09/24/17 21:14 Dose: 5 mg - Labs Labs: 09/23/17 14:46 09/23/17 14:46 PT 11.1 SECONDS (9.7-12.2) 09/22/17 20:40 INR 1.0 09/22/17 20:40 APTT 31 SECONDS (21-34) 09/22/17 20:40 Assessment and Plan (1) Chest pain Status: Acute (2) Anxiety Status: Acute (3) Cervicalgia Status: Acute (4) Chronic pain Status: Acute (5) Depression (emotion) Status: Acute (6) Joint pain Status: Acute (7) Low back pain Status: Acute
--- NOTE | 2017-09-25 11:36 | CP.PCM.PN ---
Subjective - Date & Time of Evaluation Date of Evaluation: 09/25/17 Time of Evaluation: 11:36 - Subjective Subjective: PT SEEN BY DR. GUEVARA THIS MORNING AND CLEARED FOR D/C HOME TODAY. OK PER DR. PHILLIPS TO D/C TODAY. ALL RX DISCUSSED AT LENGTH WITH THE PT. SHE WAS ALSO PROVIDED WITH A RX FOR HER HOME CARE COMPANY TO EVAL FOR AN INCREASE IN HOURS. PT WAITING FOR TRANSPORTATION TO BE ARRANGED BY TO GO HOME. D/C PLAN DISCUSSED WITH PT'S PRIMARY RN, ADELIA. SEE BELOW FOR D/C PLAN SENT WITH THE PT. NO FURTHER ORDERS. -FOLLOW UP WITH DR. GUEVARA IN THE OFFICE WITHIN 5-7 DAYS OF DISCHARGE---CALL THE OFFICE TODAY WHEN YOU GET HOME TO MAKE YOUR APPT. -CONTINUE YOU HOME MEDICATIONS USUAL. -NEW PRESCRIPTIONS DISCUSSED HAVE BEEN SENT TO YOUR PHARMACY---PRINCIPAL SYSTEMS ARCHITECT OR HAVE THEM DELIVERED TODAY. -TAKE ALL NEW PRESCRIPTIONS EXACTLY PRESCRIBED. -CALL YOU HOME HEALTH AGENCY TO EVALUATE YOU FOR AN INCREASE IN HOMEMAKER HOURS. -FOR FURTHER QUESTIONS OR CONCERNS, CONTACT DR. GUEVARA'S OFFICE. Objective - Vital Signs/Intake and Output Vital Signs (last 24 hours): Temp Pulse Resp BP Pulse Ox 98.7 F 66 16 99/69 L 96 09/25/17 08:00 09/25/17 10:15 09/25/17 10:15 09/25/17 10:15 09/25/17 08:00 Intake and Output: 09/25/17 09/25/17 06:59 18:59 Intake Total 480 Balance 480 - Medications Medications: Current Medications Enoxaparin Sodium (Lovenox) 40 mg SC DAILY [facility] Last Admin: 09/25/17 09:11 Dose: 40 mg Lactulose (Enulose) 20 gm PO QID [facility] Last Admin: 09/25/17 09:11 Dose: 20 gm Metoprolol Tartrate (Lopressor) 25 mg PO BID [facility] Last Admin: 09/25/17 09:12 Dose: 25 mg Oxycodone/Acetaminophen (Percocet 5/325 Mg Tab) 1 tab PO Q6H PRN PRN Reason: Pain, moderate (4-7) Stop: 09/26/17 11:24 Last Admin: 09/24/17 21:14 Dose: 1 tab Pneumococcal Polyvalent Vaccine (Pneumovax 23 Vaccine) 0.5 ml IM .ONCE ONE Stop: 09/25/17 12:01 Ranolazine (Ranexa) 500 mg PO BID [facility] Last Admin: 09/25/17 09:11 Dose: 500 mg Rosuvastatin Calcium (Crestor) 10 mg PO HS [facility] Last Admin: 09/24/17 21:13 Dose: 10 mg Zolpidem Tartrate (Ambien) 5 mg PO HS PRN PRN Reason: Insomnia Last Admin: 09/24/17 21:14 Dose: 5 mg - Labs Labs: 09/23/17 14:46 09/23/17 14:46 PT 11.1 SECONDS (9.7-12.2) 09/22/17 20:40 INR 1.0 09/22/17 20:40 APTT 31 SECONDS (21-34) 09/22/17 20:40
[2017-09-25] MEDS ORDERED: Pneumococcal 23-Valent Vaccine IM ONE (12:00)
[2017-09-25 13:01] VITALS: BP 116/79; PULSE 60; TEMP 97.7; O2SAT 98
--- NOTE | 2017-09-27 11:12 | CARD ---
APPROVED REPORT EXAM: Two-dimensional and M-mode echocardiogram with Doppler and color Doppler. Other Information Quality : GoodRhythm : INDICATION Chest Pain ACS 2D DIMENSIONS IVSd0.9 (0.7-1.1cm)LVDd4.3 (3.9-5.9cm) PWd0.9 (0.7-1.1cm)LVDs2.5 (2.5-4.0cm) FS (%) 40.1 %LVEF (%)71.1 (>50%) M-Mode DIMENSIONS RVDd2.48 (2.1-3.2cm)Left Atrium (MM)2.99 (2.5-4.0cm) IVSd0.79 (0.7-1.1cm)Aortic Root2.79 (2.2-3.7cm) LVDd4.71 (4.0-5.6cm)Aortic Cusp Exc.1.95 (1.5-2.0cm) PWd0.87 (0.7-1.1cm)FS (%) 45 % LVDs2.57 (2.0-3.8cm)LVEF (%)77 (>50%) Mitral Valve MV E Mbyargib48.3cm/sMV A Pqisnrrz06.4cm/sE/A ratio1.5 TDI E/Lateral E'0.0E/Medial E'0.0 Tricuspid Valve TR Peak Yftkukdc598ed/sTR Peak [id number] <Conclusion> Left ventricle: thickness: normal; size: normal; overall ejection fraction: 65%: diastolic filling pressures: normal Mitral valve: annulus: normal: leaflets: normal: excursion: normal; no significant trans-mitral gradient: no significant incompetence: left atrium: normal Aortic valve: leaflets: normal: excursion: normal; no significant trans-aortic gradient: No significant incompetence: aortic root: normal Right sided Structures: Pulmonary valve: normal; no significant incompetence; Tricuspid valve: normal; no significant incompetence: Intra-cardiac hemodynamics: pulmonary systolic pressures: normal; central venous pressures: normal No pericardial effusion
--- NOTE | 2017-09-27 21:31 | CARD ---
APPROVED REPORT EKG Measurement Heart [id number] <Conclusion> Normal sinus rhythm Anterior infarct, age undetermined Abnormal ECG
== END 2017-09-25 13:05 | disposition home or self-care (01) | DRG 313 ==
LOC: C.ER 17:43 → C.9E 09-23 00:47 → OBSVTOIN 09-23 00:47 → C.9I 09-23 06:38
PROVIDERS: ADMIT Internal Medicine; ATTEND Internal Medicine
PROC: 3E0234Z Introduction of Serum, Toxoid and Vaccine into Muscle, Percutaneous Approach (ICD-10-PCS; principal; 2017-09-23)
DX: R07.89 Other chest pain (principal); Z23 Encounter for immunization; F32.9 Major depressive disorder, single episode, unspecified; E78.5 Hyperlipidemia, unspecified; F41.9 Anxiety disorder, unspecified; G47.30 Sleep apnea, unspecified; G89.29 Other chronic pain; I10 Essential (primary) hypertension; K59.00 Constipation, unspecified

== ENCOUNTER 2018-04-15 18:05 | Inpatient (IN) | payer MEDICARE, OTHER ==
[2018-04-15 18:05] VITALS: BMI 29.2
[2018-04-15 20:01] LABS: BASO # 0.1 K/uL (0.0-0.2); BASO % 1.3 % (0.0-2.0); EOS # 0.2 K/uL (0.0-0.7); EOS % 3.3 % (0.0-4.0); LYMPH # 3.9 K/uL (1.0-4.3); LYMPH % 54.8 % (20.0-40.0); MEAN CELL VOLUME 82.3 fL (81.0-99.0); MEAN CORPUSCULAR HEMOGLOBIN 27.7 pg (27.0-31.0); MEAN CORPUSCULAR HGB CONC 33.7 g/dL (33.0-37.0); MEAN PLATELET VOLUME 6.7 fL (7.2-11.7); MONO # 0.5 K/uL (0.0-0.8); MONO % 6.9 % (0.0-10.0); NEUT # 2.4 K/uL (1.8-7.0); NEUT % 33.7 % (50.0-75.0); NRBC % 0.1 % (0.0-2.0); RBC 3.96 Mil/uL (3.80-5.20); RED CELL DISTRIBUTION WIDTH 14.1 % (11.5-14.5)
[2018-04-15 20:12] LABS: INR 1.1; PROTHROMBIN TIME 11.6 SECONDS (9.7-12.2)
--- NOTE | 2018-04-15 20:13 | C.PDOC ---
History Of Present Illness 63 year old female PMHx of HLD, chronic back pain, L should pain, L knee pain and muscle spasms who presents to ED complaining of intermittent thoracic back pain radiating to bilateral lateral chest that began at approximately 6 PM. Associated with mild shortness of breath. Patient also complains of pain along entire length of the spine, L shoulder pain and L knee pain that worsened with physical therapy today. Patient ran out of her percocet. Treatment with Naproxen 500mg, gabapentin 300mg and valium 5 mg provided no improvement of pain. Patient denies new trauma, diaphoresis, nausea, vomiting, abdominal pain, lightheadedne ss, dizziness, fever and cough. <Doreen Borja - Last Filed: 04/15/18 22:04> <Doreen Borja - Last Filed: 04/15/18 22:04> <Florentino Marcelo - Last Filed: 04/16/18 11:25> Time Seen by Provider: 04/15/18 20:10 Chief Complaint (Nursing): Chest Pain Past Medical History Vital Signs: Last Vital Signs Temp 98 F 04/15/18 20:27 Pulse 78 04/15/18 20:27 Resp 18 04/15/18 20:27 BP 126/73 04/15/18 20:27 Pulse Ox 98 04/15/18 20:27 - [facility] Procedures INJECT/INFUSE NEC (11/15/13) INTRODUCTION OF SERUM/TOX/VACCINE INTO MUSCLE, PERC APPROACH (09/23/17) <Doreen Borja P - Last Filed: 04/15/18 22:04> Vital Signs: Last Vital Signs Temp 98.5 F 04/15/18 18:11 Pulse 90 04/15/18 18:11 Resp 18 04/15/18 18:11 BP 124/85 04/15/18 18:11 Pulse Ox 100 04/15/18 18:11 - Medical History PMH: Anxiety, Arthritis, Back Problems, Bronchitis, Depression, Hypercholesterolemia, Sleep Apnea, Chronic Pain Denies: HIV, HTN, Seizures, Sexually Transmitted Disease Surgical History: Back Surgery - [facility] Procedures INJECT/INFUSE NEC (11/15/13) INTRODUCTION OF SERUM/TOX/VACCINE INTO MUSCLE, PERC APPROACH (09/23/17) Family History: States: Unknown Family Hx - Social History Hx Tobacco Use: No Hx Alcohol Use: No Hx Substance Use: No - Immunization History Hx Tetanus Toxoid Vaccination: Yes Hx Influenza Vaccination: Yes Hx Pneumococcal Vaccination: No <Florentino Marcelo - Last Filed: 04/16/18 11:25> Review Of Systems Constitutional: Negative for: Fever, Chills, Sweats Cardiovascular: Positive for: Chest Pain. Negative for: Palpitations Respiratory: Positive for: Shortness of Breath. Negative for: Cough Gastrointestinal: Negative for: Nausea, Vomiting, Abdominal Pain Genitourinary: Negative for: Dysuria, Frequency Musculoskeletal: Positive for: Neck Pain, Shoulder Pain (Left side), Back Pain, Other (L knee pain) Neurological: Negative for: Weakness, Numbness, Confusion, Headache, Dizziness <Doreen Borja P - Last Filed: 04/15/18 22:04> Physical Exam - Physical Exam Appears: Non-toxic, No Acute Distress Skin: Normal Color, Warm, Dry Head: Atraumatic, Normacephalic Eye(s): bilateral: Normal Inspection, EOMI Nose: Normal Throat: Normal Neck: Normal, Normal ROM Chest: Tenderness (to palpation of sternum and lateral ribs bilaterally) Cardiovascular: Rhythm Regular, No Rhythm Irregular, No Edema, No Friction Rub, No Murmur, No JVD Respiratory: Normal Breath Sounds, No Decreased Breath Sounds, No Rales, No Rhonchi, No Wheezing Gastrointestinal/Abdominal: Normal Exam, Bowel Sounds, Soft, No Tenderness, No Guarding, No Rebound Back: Normal Inspection, Vertebral Tenderness (to palpation of spine from cervial to sacrum), Muscle Spasm (bilateral paraspinal muscles T5-11), Paraspinal Tenderness (thoracic spine), Other (ROM is painful) Neurological/Psych: Oriented x3, Normal Cognition, Normal Cranial Nerves, Normal Motor <Doreen Borja P - Last Filed: 04/15/18 22:04> - Physical Exam Back: Other (ROM is painful. NO meningeal signs) <Florentino Marcelo - Last Filed: 04/16/18 11:25> ED Course And Treatment - Laboratory Results Result Diagrams: 04/15/18 19:57 04/15/18 19:57 <Doreen Borja P - Last Filed: 04/15/18 22:04> - Laboratory Results Result Diagrams: 04/15/18 19:57 04/15/18 19:57 O2 Sat by Pulse Oximetry: 100 <Florentino Marcelo - Last Filed: 04/16/18 11:25> Medical Decision Making Medical Decision Making: Plan: CBC: Hct 32.6 CMP: Cr 1.3, AST 66 Troponin: negative EKG: NSR at 87 bpm, moderate criteria for LVH, cannot rule out septal infarct, age undetermined, KS 162ms, QRS 78ms, QTc 440ms CTA IVF Flexeril, Percocet, Duoneb <Doreen Borja P - Last Filed: 04/15/18 22:04> Medical Decision Makin Well apperaing 63 yr old F w/ hx of angina p/w chest pain radiating to back. Well appearing on exam in NAD. EKG without stemi. Troponin unremarkable. CT Chest w/ out dissection, will plan on observation for continued troponin given pain began at 1800. appreicate consult w/ Dr. Dobbs: to Admit to Dr. Vargas service. pt in NAD. admitted <Florentino Marcelo - Last Filed: 04/16/18 11:25> Disposition <BorjaDoreen P - Last Filed: 04/15/18 22:04> - Disposition Disposition Time: 23:35 <Florentino Marcelo - Last Filed: 04/16/18 11:25> - Disposition Disposition: HOSPITALIZED Condition: GOOD - Clinical Impression Clinical Impression: Chest discomfort - PA / NOTE SPECIALIST / Resident Statement / has reviewed & agrees with the documentation as recorded. / has examined the patient and agrees with the treatment plan. <Florentino Marcelo - Last Filed: 04/16/18 11:25>
[2018-04-15 20:20] LABS: ALB/GLOB RATIO 1.2 (1.0-2.1); ALBUMIN 4.1 g/dL (3.5-5.0); ALT/SGPT 28 U/L (9-52); AST/SGOT 66 U/L (14-36); BLOOD UREA NITROGEN 17 mg/dL (7-17); CALCIUM 8.9 mg/dl (8.6-10.4); GFR NON-AFRICAN AMERICAN 42
[2018-04-15] MEDS ORDERED: Sodium Chloride 0.9% 1,000 ML IV ONE (21:08)
[2018-04-15] MEDS ORDERED: Oxycodone/Acetaminophen 5/325 mg Tab PO ONE (21:10)
[2018-04-15] MEDS ORDERED: Albuterol-Ipratrop 3 mg / 0.5 (3 ml) UD INH ONE (21:10)
[2018-04-15] MEDS ORDERED: Oxycodone/Acetaminophen 5/325 mg Tab ONE (21:15)
[2018-04-15] MEDS ORDERED: Albuterol 0.083% Inhal Sol (2.5 mg/3 mL) UD ONE (21:27)
[2018-04-15] MEDS ORDERED: Iodixanol 320 MG/ML 100 ML BOTTLE IV ONE (21:29)
[2018-04-15] MEDS ORDERED: Aspirin 325 mg EC Tablets PO STA (23:42)
[2018-04-15] MEDS ORDERED: Enoxaparin 40 mg Syringe SC ONE (23:47)
[2018-04-16] MEDS ORDERED: Enoxaparin 40 mg Syringe SC ONE (01:00)
--- NOTE | 2018-04-16 09:29 | CT ---
Date of service: 04/15/2018 CTA chest PE protocol Indication: Back pain, chest pain, SOB Technique: Contiguous axial images were obtained through the chest with intravenous contrast enhancement. Sagittal and coronal reconstructions were generated and reviewed. This CT exam was performed using 1 or more of the following dose reduction techniques: Automated exposure control, adjustment of the MAA and/or kV according to patient size, and/or use of iterative reconstruction technique. IV contrast: 100 cc Visipaque 320 Radiation dose (DLP): 466.64 MGy-cm. Comparison: Chest x-ray performed 11/18/17 Findings: Visualized portions of the inferior thyroid gland appear unremarkable. The mediastinal and hilar vascular structures appear within normal limits. The heart appears within normal limits of size. No large central or segmental pulmonary embolus evident. Mild bibasilar atelectasis. No pleural effusion. No pneumothorax. No suspicious pulmonary nodules measuring greater than 5 mm. Limited visualized portions of the upper abdomen: Partially imaged 2.1 x 1.4 cm exophytic right renal lesion appears consistent with a cyst. Too small to characterize hepatic hypodensities, statistically likely cysts or hemangiomas. Degenerative changes of the spine. Impression: No large central or segmental pulmonary embolus evident. Partially imaged 2.1 x 1.4 cm exophytic right renal lesion appears consistent with a cyst. Too small to characterize hepatic hypodensities, statistically likely cysts or hemangiomas. Preliminary impression was provided by [facility].
[2018-04-16] MEDS: Metoprolol Succinate 25 mg XL Tab PO SCH (09:40)
[2018-04-16] MEDS: Oxycodone/Acetaminophen 5/325 mg Tab PO PRN ×2 (09:55→19:56)
[2018-04-16 11:49] LABS: CK-MB 1.24 ng/mL (0.0-3.38)
[2018-04-16] MEDS ORDERED: Albuterol 0.083% Inhal Sol (2.5 mg/3 mL) UD INH PRN (13:32)
--- NOTE | 2018-04-16 18:30 | CP.PCM.HP ---
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 GUEVARA - Medical History PMH: Anxiety, Arthritis, Back Problems, Bronchitis, Depression, Hypercholester olemia, Sleep Apnea, Chronic Pain Denies: HIV, HTN, Seizures, Sexually Transmitted Disease Surgical History: Back Surgery - [facility] Procedures INJECT/INFUSE NEC (11/15/13) INTRODUCTION OF SERUM/TOX/VACCINE INTO MUSCLE, PERC APPROACH (09/23/17) Present on Admission - Present on Admission Any Indicators Present on Admission: No History of DVT/PE: No History of Uncontrolled Diabetes: No Urinary Catheter: No Decubitus Ulcer Present: No History Surgical Site Infection Following: None Review of Systems - Review of Systems All systems: reviewed and no additional remarkable complaints except - Constitutional Constitutional: As Per HPI - EENT Eyes: absent: As Per HPI, Blind Spots, Blurred Vision, Change in Vision, Decreased Night Vision, Diplopia, Discharge, Dry Eye, Exophthalmos, Floaters, Irritation, Itchy Eyes, Loss of Peripheral Vision, Pain, Photophobia, Requires Corrective Lenses, Sees Flashes, Spots in Vision, Tunnel Vision, Other Visual Disturbances, Loss of Vision, Other Ears: absent: As Per HPI, Decreased Hearing, Ear Discharge, Ear Pain, Tinnitus, Abnormal Hearing, Disequilibrium, Dizziness, Other Nose/Mouth/Throat: absent: As Per HPI, Epistaxis, Nasal Congestion, Nasal Discharge, Nasal Obstruction, Nasal Trauma, Nose Pain, Post Nasal Drip, Sinus Pain, Sinus Pressure, Bleeding Gums, Change in Voice, Dental Pain, Dry Mouth, Dysphagia, Halitosis, Hoarsness, Lip Swelling, Mouth Lesions, Mouth Pain, Odynophagia, Sore Throat, Throat Swelling, Tongue Swelling, Facial Pain, Neck Pain, Neck Mass, Other - Breasts Breasts: absent: As Per HPI, Change in Shape, Mass, Pain, Nipple Discharge, Nipple Inversion, Skin Changes, Swelling, Other - Cardiovascular Cardiovascular: As Per HPI - Respiratory Respiratory: absent: As Per HPI, Cough, Dyspnea, Hemoptysis, Dyspnea on Exertion, Wheezing, Snoring, Stridor, Pain on Inspiration, Chest Congestion, Excessive Mucous Production, Change in Mucous Color, Pain with Coughing, Other - Gastrointestinal Gastrointestinal: absent: As Per HPI, Abdominal Pain, Belching, Bloating, Change in Bowel Habits, Change in Stool Character, Coffee Ground Emesis, Constipation, Cramping, Diarrhea, Dyspepsia, Dysphagia, Early Satiety, Excessive Flatus, Fecal Incontinence, Heartburn, Hematemesis, Hematochezia, Loose Stools, Melena, Nausea, Odynophagia, Temesmus, Vomiting, Other - Genitourinary Genitourinary: absent: As Per HPI, Change in Urinary Stream, Difficulty Urinating, Dysuria, Flank Pain, Hematuria, Pyuria, Nocturia, Urinary Incontinence, Urinary Frequency, Urinary Hesitance, Urinary Urgency, Voiding Paolo q/Small Amts, Freq UTI, Hx Renal/Bladder Calculi, Hx /Renal Surgery, Bladder Distension, Other - Reproductive: Female Reproductive:Female: absent: As Per HPI, Amenorrhea, Amenorrhea/ Control, Currently Menstual, Cycle <21 Days, Cycle >35 Days, Cycle Variable, Menses 1-7 Days, Menses >/= 8 Days, Menses Variable, Cycle > 4 Weeks Between, No Menses for 6 Months, Heavy Menses, Light Menses, Normal Menses, Spotting Between Cycles, S/P Hysterectomy, Menopausal, Post Menopausal, Premenarche, Abnormal Vaginal Bleeding, Dysmenorrhea, Dyspareunia, Genital Lesions, Genital Pruritis, Pelvic Pain, Prolapse Symptoms, Sexual Dysfunction, Vaginal Discharge, Vaginal Dryness, Vaginal Odor, Vaginal Pruritis, Other - Menstruation Menstruation: absent: As Per HPI, Amenorrhea, Amenorrhea/ Control, Currently Menstual, Cycle <21 Days, Cycle >35 Days, Cycle Variable, Menses 1-7 Days, Menses >/= 8 Days, Menses Variable, Cycle > 4 Weeks Between, No Menses for 6 Months, Heavy Menses, Light Menses, Normal Menses, Spotting Between Cycles, S/P Hysterectomy, Menopausal, Post Menopausal, Premenarche, Abnormal Vaginal Bleeding, Dysmenorrhea, Other - Musculoskeletal Musculoskeletal: absent: As Per HPI, Abnormal Gait, Arthralgias, Atrophy, Back Pain, Deformity, Joint Swelling, Limited Range of Motion, Loss of Height, Muscle Cramps, Muscle Weakness, Myalgias, Neck Pain, Numbness, Radiating Pain into Limb, Stiffness, Tingling, Other - Integumentary Integumentary: absent: As Per HPI, Acne, Alopecia, Bleeding Lesions, Change in Hair, Change in Nails, Change in Pigmentation, Changing Lesions, Dry Skin, Erythema, Furuncle, Hirsutism, Lesions, New Lesions, Non-Healing Lesions, Photosensitivity, Pruritus, Rash, Skin Pain, Skin Ulcer, Sores, Striae, Swelling, Unusual Bruising, Wounds, Jaundice, Other - Neurological Neurological: absent: As Per HPI, Abnormal Gait, Abnormal Hearing, Abnormal Movements, Abnormal Speech, Behavioral Changes, Burning Sensations, Confusion, Convulsions, Disequilibrium, Dizziness, Numbness, Focal Weakness, Frequent Falls, Headaches, Lack of Coordination, Loss of Vision, Memory Loss, Paresthesias, Radicular Pain, Restless Legs, Sensory Deficit, Syncope, Tingling, Tremor, Vertigo, Weakness, Other Visual Disturbances, Other - Psychiatric Psychiatric: absent: As Per HPI, Abnormal Sleep Pattern, Anhedonia, Anxiety, Auditory Hallucinations, Behavioral Changes, Change in Appetite, Change in Libido, Confusion, Depression, Difficulty Concentrating, Hallucinations, Homicidal Ideation, Hopelessness, Irritability, Memory Loss, Mood Swings, Panic Attacks, Paranoia, Suicidal Ideation, Visual Hallucinations, Tactile Hallucinations, Other - Endocrine Endocrine: absent: As Per HPI, Change in Body Appearance, Change in Libido, Cold Intolorance, Deepening of Voice, Excessive Sweating, Fatigue, Flushing, Heat Intolorance, Increase in Ring/Shoe/Hat Size, Palpitations, Polydipsia, Polyphagia, Polyuria, Other Past Patient History - Infectious Disease Hx of Infectious Diseases: None - Past Medical History & Family History Past Medical History?: Yes - Past Social History Smoking Status: Never Smoked - CARDIAC Hx Hypercholesterolemia: Yes Hx Hypertension: No - PULMONARY Hx Bronchitis: Yes Hx Sleep Apnea: Yes - NEUROLOGICAL Hx Seizures: No - HEENT Hx HEENT Problems: No - RENAL Hx Chronic Kidney Disease: No - ENDOCRINE/METABOLIC Hx Endocrine Disorders: No - HEMATOLOGICAL/ONCOLOGICAL Hx Human Immunodeficiency Virus (HIV): No - INTEGUMENTARY Hx Dermatological Problems: No - MUSCULOSKELETAL/RHEUMATOLOGICAL Hx Arthritis: Yes - GASTROINTESTINAL Hx Gastrointestinal Disorders: No - GENITOURINARY/GYNECOLOGICAL Hx Sexually Transmitted Disorders: No - PSYCHIATRIC Hx Anxiety: Yes Hx Depression: Yes Hx Substance Use: No - SURGICAL HISTORY Hx Surgeries: Yes Other/Comment: HIP SURGERY - ANESTHESIA Hx Anesthesia: Yes Hx Anesthesia Reactions: No Hx Malignant Hyperthermia: No Meds Allergies/Adverse Reactions: Allergies Allergy/AdvReac Type Severity Reaction Status Date / Time tizanidine Allergy Intermediate RASH Verified 09/22/17 18:19 Physical Exam - Constitutional Appears: Non-toxic, Chronically Ill - Head Exam Head Exam: NORMOCEPHALIC - Eye Exam Eye Exam: EOMI, Normal appearance, PERRL Pupil Exam: NORMAL ACCOMODATION, PERRL - ENT Exam ENT Exam: Mucous Membranes Moist, Normal Exam - Neck Exam Neck exam: Positive for: Normal Inspection - Respiratory Exam Respiratory Exam: Clear to Auscultation Bilateral, NORMAL BREATHING PATTERN - Cardiovascular Exam Cardiovascular Exam: REGULAR RHYTHM - GI/Abdominal Exam GI & Abdominal Exam: Normal Bowel Sounds, Soft. absent: Tenderness - Rectal Exam Rectal Exam: Deferred - Extremities Exam Extremities exam: Positive for: normal inspection - Back Exam Back exam: NORMAL INSPECTION - Neurological Exam Neurological exam: Alert, CN II-XII Intact, Normal Gait, Oriented x3, Reflexes Normal - Psychiatric Exam Psychiatric exam: Normal Affect, Normal Mood - Skin Skin Exam: Dry, Intact, Normal Color, Warm Results - Vital Signs Recent Vital Signs: Last Vital Signs Temp 98.2 F 04/16/18 15:00 Pulse 78 04/16/18 16:00 Resp 20 04/16/18 15:00 BP 130/77 04/16/18 15:00 Pulse Ox 98 04/16/18 15:00 - Labs Result Diagrams: 04/15/18 19:57 04/15/18 19:57 Labs: Laboratory Results - last 24 hr 04/15/18 04/15/18 04/15/18 19:57 19:57 19:57 WBC 7.0 RBC 3.96 Hgb 11.0 Hct 32.6 L MCV 82.3 D MCH 27.7 MCHC 33.7 RDW 14.1 Plt Count 275 MPV 6.7 L Neut % (Auto) 33.7 L Lymph % (Auto) 54.8 H Mcdowell % (Auto) 6.9 Eos % (Auto) 3.3 Baso % (Auto) 1.3 Neut # (Auto) 2.4 Lymph # (Auto) 3.9 Mcdowell # (Auto) 0.5 Eos # (Auto) 0.2 Baso # (Auto) 0.1 PT 11.6 INR 1.1 APTT 31 Sodium 140 Potassium 4.1 Chloride 104 Carbon Dioxide 27 Anion Gap 13 BUN 17 Creatinine 1.3 H Est GFR ( Amer) 50 Est GFR (Non-Af Amer) 42 Random Glucose 89 Calcium 8.9 Total Bilirubin 0.5 AST 66 H D ALT 28 Alkaline Phosphatase 92 Total Creatine Kinase CK-MB (Mass) Troponin I < 0.0120 Total Protein 7.5 Albumin 4.1 Globulin 3.4 Albumin/Globulin Ratio 1.2 04/16/18 11:04 WBC RBC Hgb Hct MCV MCH MCHC RDW Plt Count MPV Neut % (Auto) Lymph % (Auto) Mcdowell % (Auto) Eos % (Auto) Baso % (Auto) Neut # (Auto) Lymph # (Auto) Mcdowell # (Auto) Eos # (Auto) Baso # (Auto) PT INR APTT Sodium Potassium Chloride Carbon Dioxide Anion Gap BUN Creatinine Est GFR ( Amer) Est GFR (Non-Af Amer) Random Glucose Calcium Total Bilirubin AST ALT Alkaline Phosphatase Total Creatine Kinase 180 H CK-MB (Mass) 1.24 Troponin I < 0.0120 Total Protein Albumin Globulin Albumin/Globulin Ratio Assessment & Plan (1) Chest pain Status: Acute (2) Chronic pain Status: Acute - Assessment and Plan (Free Text) Assessment: WILL OBTAIN CARDIAC ENZYMES MAY NEED CARDIAC CATH DR PAOLA CONKLIN Decision To Admit - Pt Status Changed To: Hospital Disposition Of: Inpatient - Admit Certification Admit to Inpatient:: After my assessment, the patient will require hospitalization for at least two midnights. This is because of the severity of symptoms shown, intensity of services needed, and/or the medical risk in this patient being treated as an outpatient. - InPatient: Physician Admission Certification:: ADMIT TOO 6T TELE FOR ACS - . Bed Request Type: Regular Admitting Physician: Nagi Vargas
--- NOTE | 2018-04-16 21:22 | CARD ---
APPROVED REPORT Date of service: 04/15/2018 EKG Measurement Heart [id number] <Conclusion> Normal sinus rhythm Moderate voltage criteria for LVH, may be normal variant Cannot rule out Septal infarct, age undetermined Abnormal ECG
[2018-04-17] MEDS: Oxycodone/Acetaminophen 5/325 mg Tab PO PRN ×2 (09:20→19:33)
[2018-04-17] MEDS: Metoprolol Succinate 25 mg XL Tab PO SCH (13:27)
[2018-04-17] MEDS ORDERED: Pneumococcal 23-Valent Vaccine IM ONE (14:00)
--- NOTE | 2018-04-18 02:49 | CP.PCM.CON ---
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 absent: Pedal Edema - Gastrointestinal Gastrointestinal: Heartburn - Musculoskeletal Musculoskeletal: Back Pain Past Patient History - Infectious Disease Hx of Infectious Diseases: None - Past Medical History & Family History Past Medical History?: Yes - Past Social History Smoking Status: Never Smoked - CARDIAC Hx Hypercholesterolemia: Yes Hx Hypertension: No - PULMONARY Hx Bronchitis: Yes Hx Sleep Apnea: Yes - NEUROLOGICAL Hx Seizures: No - HEENT Hx HEENT Problems: No - RENAL Hx Chronic Kidney Disease: No - ENDOCRINE/METABOLIC Hx Endocrine Disorders: No - HEMATOLOGICAL/ONCOLOGICAL Hx Human Immunodeficiency Virus (HIV): No - INTEGUMENTARY Hx Dermatological Problems: No - MUSCULOSKELETAL/RHEUMATOLOGICAL Hx Arthritis: Yes - GASTROINTESTINAL Hx Gastrointestinal Disorders: No - GENITOURINARY/GYNECOLOGICAL Hx Sexually Transmitted Disorders: No - PSYCHIATRIC Hx Anxiety: Yes Hx Depression: Yes Hx Substance Use: No - SURGICAL HISTORY Hx Surgeries: Yes Other/Comment: HIP SURGERY - ANESTHESIA Hx Anesthesia: Yes Hx Anesthesia Reactions: No Hx Malignant Hyperthermia: No Meds Allergies/Adverse Reactions: Allergies Allergy/AdvReac Type Severity Reaction Status Date / Time tizanidine Allergy Intermediate RASH Verified 09/22/17 18:19 - Medications Medications: Current Medications Albuterol Sulfate (Albuterol 0.083% Inhal Christin (2.5 Mg/3 Ml) Ud) 2.5 mg INH RQ6 PRN PRN Reason: Shortness of Breath Cyclobenzaprine HCl (Flexeril) 5 mg PO BID PRN PRN Reason: Muscle spasm Last Admin: 04/17/18 21:41 Dose: 5 mg Docusate Sodium (Colace) 100 mg PO BID [facility] Last Admin: 04/17/18 17:27 Dose: 100 mg Gabapentin (Neurontin) 600 mg PO BID [facility] Last Admin: 04/17/18 17:27 Dose: 600 mg Heparin Sodium (Porcine) (Heparin) 5,000 units SC Q12 [facility] Last Admin: 04/17/18 21:20 Dose: 5,000 units Lactulose (Enulose) 20 gm PO HS [facility] Last Admin: 04/17/18 21:19 Dose: 20 gm Metoprolol Succinate (Toprol Xl) 25 mg PO DAILY [facility] Last Admin: 04/17/18 13:27 Dose: 25 mg Oxycodone/Acetaminophen (Percocet 5/325 Mg Tab) 1 tab PO Q12H PRN PRN Reason: Pain, moderate (4-7) Stop: 04/18/18 23:48 Last Admin: 04/17/18 19:33 Dose: 1 tab Quetiapine Fumarate (Seroquel) 100 mg PO [facility] Last Admin: 04/17/18 21:19 Dose: 100 mg Rosuvastatin Calcium (Crestor) 10 mg PO [facility] Last Admin: 04/17/18 21:19 Dose: 10 mg Physical Exam - Constitutional Appears: Non-toxic - Head Exam Head Exam: NORMAL INSPECTION - Eye Exam Eye Exam: absent: Scleral icterus - ENT Exam ENT Exam: Mucous Membranes Moist - Neck Exam Neck exam: Positive for: Full Rom - Respiratory Exam Respiratory Exam: NORMAL BREATHING PATTERN - Cardiovascular Exam Cardiovascular Exam: REGULAR RHYTHM - GI/Abdominal Exam GI & Abdominal Exam: Normal Bowel Sounds, Soft - Extremities Exam Extremities exam: Negative for: pedal edema - Neurological Exam Neurological exam: Alert, Oriented x3 Results - Vital Signs Recent Vital Signs: Last Vital Signs Temp 98.3 F 04/17/18 23:00 Pulse 74 04/17/18 23:20 Resp 20 04/17/18 23:00 BP 96/67 L 04/17/18 23:00 Pulse Ox 98 04/17/18 23:00 - Labs Result Diagrams: 04/15/18 19:57 04/15/18 19:57 Assessment & Plan - Assessment and Plan (Free Text) Assessment: ACS Chronic back pain Anxiety disorder Plan: trops q6hrs x3 and EKG Lexiscan ECHO DVT proph
--- NOTE | 2018-04-18 03:03 | CP.PCM.CON ---
History of Present Illness - History of Present Illness History of Present Illness: still with atypical chest pain trops negative x 2 back pain persists Review of Systems - Constitutional Constitutional: Weight Gain - Cardiovascular Cardiovascular: Chest Pain - Respiratory Respiratory: Dyspnea on Exertion - Gastrointestinal Gastrointestinal: Abdominal Pain - Musculoskeletal Musculoskeletal: Muscle Weakness - Neurological Neurological: Paresthesias, Radicular Pain Past Patient History - Infectious Disease Hx of Infectious Diseases: None - Past Medical History & Family History Past Medical History?: Yes - Past Social History Smoking Status: Never Smoked - CARDIAC Hx Hypercholesterolemia: Yes Hx Hypertension: No - PULMONARY Hx Bronchitis: Yes Hx Sleep Apnea: Yes - NEUROLOGICAL Hx Seizures: No - HEENT Hx HEENT Problems: No - RENAL Hx Chronic Kidney Disease: No - ENDOCRINE/METABOLIC Hx Endocrine Disorders: No - HEMATOLOGICAL/ONCOLOGICAL Hx Human Immunodeficiency Virus (HIV): No - INTEGUMENTARY Hx Dermatological Problems: No - MUSCULOSKELETAL/RHEUMATOLOGICAL Hx Arthritis: Yes - GASTROINTESTINAL Hx Gastrointestinal Disorders: No - GENITOURINARY/GYNECOLOGICAL Hx Sexually Transmitted Disorders: No - PSYCHIATRIC Hx Anxiety: Yes Hx Depression: Yes Hx Substance Use: No - SURGICAL HISTORY Hx Surgeries: Yes Other/Comment: HIP SURGERY - ANESTHESIA Hx Anesthesia: Yes Hx Anesthesia Reactions: No Hx Malignant Hyperthermia: No Meds Allergies/Adverse Reactions: Allergies Allergy/AdvReac Type Severity Reaction Status Date / Time tizanidine Allergy Intermediate RASH Verified 09/22/17 18:19 - Medications Medications: Current Medications Albuterol Sulfate (Albuterol 0.083% Inhal Christin (2.5 Mg/3 Ml) Ud) 2.5 mg INH RQ6 PRN PRN Reason: Shortness of Breath Cyclobenzaprine HCl (Flexeril) 5 mg PO BID PRN PRN Reason: Muscle spasm Last Admin: 04/17/18 21:41 Dose: 5 mg Docusate Sodium (Colace) 100 mg PO BID [facility] Last Admin: 04/17/18 17:27 Dose: 100 mg Gabapentin (Neurontin) 600 mg PO BID [facility] Last Admin: 04/17/18 17:27 Dose: 600 mg Heparin Sodium (Porcine) (Heparin) 5,000 units SC Q12 [facility] Last Admin: 04/17/18 21:20 Dose: 5,000 units Lactulose (Enulose) 20 gm PO HS [facility] Last Admin: 04/17/18 21:19 Dose: 20 gm Metoprolol Succinate (Toprol Xl) 25 mg PO DAILY [facility] Last Admin: 04/17/18 13:27 Dose: 25 mg Oxycodone/Acetaminophen (Percocet 5/325 Mg Tab) 1 tab PO Q12H PRN PRN Reason: Pain, moderate (4-7) Stop: 04/18/18 23:48 Last Admin: 04/17/18 19:33 Dose: 1 tab Quetiapine Fumarate (Seroquel) 100 mg PO [facility] Last Admin: 04/17/18 21:19 Dose: 100 mg Rosuvastatin Calcium (Crestor) 10 mg PO [facility] Last Admin: 04/17/18 21:19 Dose: 10 mg Physical Exam - Constitutional Appears: Non-toxic - Head Exam Head Exam: NORMAL INSPECTION - Eye Exam Eye Exam: absent: Scleral icterus - ENT Exam ENT Exam: Mucous Membranes Moist - Neck Exam Neck exam: Positive for: Full Rom - Respiratory Exam Respiratory Exam: Clear to Auscultation Bilateral - Cardiovascular Exam Cardiovascular Exam: REGULAR RHYTHM - GI/Abdominal Exam GI & Abdominal Exam: Normal Bowel Sounds, Soft - Extremities Exam Extremities exam: Positive for: normal inspection - Neurological Exam Neurological exam: Alert, Oriented x3 Results - Vital Signs Recent Vital Signs: Last Vital Signs Temp 98.3 F 04/17/18 23:00 Pulse 74 04/17/18 23:20 Resp 20 04/17/18 23:00 BP 96/67 L 04/17/18 23:00 Pulse Ox 98 04/17/18 23:00 - Labs Result Diagrams: 04/15/18 19:57 04/15/18 19:57 Assessment & Plan - Assessment and Plan (Free Text) Assessment: ACS Chronic low back pain Anxiety disorder Depression Plan: Cont meds Oscar Echo - Date & Time Date: 04/17/18 Time: 10:30
[2018-04-18] MEDS: Oxycodone/Acetaminophen 5/325 mg Tab PO PRN ×2 (09:56→21:44)
[2018-04-18] MEDS: Metoprolol Succinate 25 mg XL Tab PO SCH (09:56)
--- NOTE | 2018-04-18 15:29 | CP.PCM.PN ---
Subjective - Date & Time of Evaluation Date of Evaluation: 04/18/18 Time of Evaluation: 07:00 - Subjective Subjective: chest pain + cardio on board may need cardiac cath before nerve stim impant Objective - Vital Signs/Intake and Output Vital Signs (last 24 hours): Temp Pulse Resp BP Pulse Ox 98.3 F 72 20 96/67 L 98 04/17/18 23:00 04/18/18 07:55 04/17/18 23:00 04/17/18 23:00 04/17/18 23:00 - Medications Medications: Current Medications Albuterol Sulfate (Albuterol 0.083% Inhal Christin (2.5 Mg/3 Ml) Ud) 2.5 mg INH RQ6 PRN PRN Reason: Shortness of Breath Cyclobenzaprine HCl (Flexeril) 5 mg PO BID PRN PRN Reason: Muscle spasm Last Admin: 04/17/18 21:41 Dose: 5 mg Docusate Sodium (Colace) 100 mg PO BID [facility] Last Admin: 04/18/18 09:55 Dose: 100 mg Gabapentin (Neurontin) 600 mg PO BID [facility] Last Admin: 04/18/18 09:56 Dose: 600 mg Heparin Sodium (Porcine) (Heparin) 5,000 units SC Q12 [facility] Last Admin: 04/18/18 09:59 Dose: 5,000 units Lactulose (Enulose) 20 gm PO [facility] Last Admin: 04/17/18 21:19 Dose: 20 gm Metoprolol Succinate (Toprol Xl) 25 mg PO DAILY [facility] Last Admin: 04/18/18 09:56 Dose: 25 mg Oxycodone/Acetaminophen (Percocet 5/325 Mg Tab) 1 tab PO Q12H PRN PRN Reason: Pain, moderate (4-7) Stop: 04/18/18 23:48 Last Admin: 04/18/18 09:56 Dose: 1 tab Quetiapine Fumarate (Seroquel) 100 mg PO [facility] Last Admin: 04/17/18 21:19 Dose: 100 mg Rosuvastatin Calcium (Crestor) 10 mg PO [facility] Last Admin: 04/17/18 21:19 Dose: 10 mg - Labs Labs: 04/15/18 19:57 04/15/18 19:57 PT 11.6 SECONDS (9.7-12.2) 11/01/18 19:57 INR 1.1 04/15/18 19:57 APTT 31 SECONDS (21-34) 04/15/18 19:57 - Constitutional Appears: Non-toxic, Chronically Ill - Head Exam Head Exam: NORMOCEPHALIC - Eye Exam Eye Exam: absent: Scleral icterus - ENT Exam ENT Exam: Mucous Membranes Dry - Neck Exam Neck Exam: absent: Lymphadenopathy - Respiratory Exam Respiratory Exam: Decreased Breath Sounds - Cardiovascular Exam Cardiovascular Exam: REGULAR RHYTHM - GI/Abdominal Exam GI & Abdominal Exam: Distended - Rectal Exam Rectal Exam: Deferred - Exam Exam: NORMAL INSPECTION - Extremities Exam Extremities Exam: absent: Pedal Edema - Back Exam Back Exam: absent: CVA tenderness (L), CVA tenderness (R) Assessment and Plan (1) Chest pain Status: Acute (2) Chronic pain Status: Acute
--- NOTE | 2018-04-18 17:00 | CP.PCM.PN ---
Subjective - Date & Time of Evaluation Date of Evaluation: 04/18/18 Time of Evaluation: 09:00 - Subjective Subjective: on and off chest tightness persist NAD radiating low back pain persist Objective - Vital Signs/Intake and Output Vital Signs (last 24 hours): Temp Pulse Resp BP Pulse Ox 97.9 F 87 18 127/86 100 04/18/18 15:29 04/18/18 16:53 04/18/18 15:29 04/18/18 15:29 04/18/18 15:29 - Medications Medications: Current Medications Albuterol Sulfate (Albuterol 0.083% Inhal Christin (2.5 Mg/3 Ml) Ud) 2.5 mg INH RQ6 PRN PRN Reason: Shortness of Breath Cyclobenzaprine HCl (Flexeril) 5 mg PO BID PRN PRN Reason: Muscle spasm Last Admin: 04/17/18 21:41 Dose: 5 mg Docusate Sodium (Colace) 100 mg PO BID [facility] Last Admin: 04/18/18 09:55 Dose: 100 mg Gabapentin (Neurontin) 600 mg PO BID [facility] Last Admin: 04/18/18 09:56 Dose: 600 mg Heparin Sodium (Porcine) (Heparin) 5,000 units SC Q12 [facility] Last Admin: 04/18/18 09:59 Dose: 5,000 units Lactulose (Enulose) 20 gm PO HS [facility] Last Admin: 04/17/18 21:19 Dose: 20 gm Lactulose (Enulose) 20 gm PO Q6H PRN PRN Reason: Constipation Metoprolol Succinate (Toprol Xl) 25 mg PO DAILY [facility] Last Admin: 04/18/18 09:56 Dose: 25 mg Oxycodone/Acetaminophen (Percocet 5/325 Mg Tab) 1 tab PO Q12H PRN PRN Reason: Pain, moderate (4-7) Stop: 04/18/18 23:48 Last Admin: 04/18/18 09:56 Dose: 1 tab Quetiapine Fumarate (Seroquel) 100 mg PO [facility] Last Admin: 04/17/18 21:19 Dose: 100 mg Rosuvastatin Calcium (Crestor) 10 mg PO HS [facility] Last Admin: 04/17/18 21:19 Dose: 10 mg - Labs Labs: 04/15/18 19:57 04/15/18 19:57 PT 11.6 SECONDS (9.7-12.2) 04/15/18 19:57 INR 1.1 04/15/18 19:57 APTT 31 SECONDS (21-34) 04/15/18 19:57 - Constitutional Appears: Non-toxic - Head Exam Head Exam: NORMAL INSPECTION - Eye Exam Eye Exam: absent: Scleral icterus - ENT Exam ENT Exam: Mucous Membranes Moist - Neck Exam Neck Exam: Full ROM - Respiratory Exam Respiratory Exam: NORMAL BREATHING PATTERN - Cardiovascular Exam Cardiovascular Exam: REGULAR RHYTHM - GI/Abdominal Exam GI & Abdominal Exam: Soft, Tenderness - Extremities Exam Extremities Exam: Pedal Edema. absent: Calf Tenderness - Neurological Exam Neurological Exam: Alert, Oriented x3 Assessment and Plan - Assessment and Plan (Free Text) Assessment: Atypical chest pain Low back pain Asthma Anxiety Plan: Lexiscan Echo Psyche consult with Dr Manzo
[2018-04-19] MEDS: Metoprolol Succinate 25 mg XL Tab PO SCH ×2 (10:00→12:10)
--- NOTE | 2018-04-19 10:59 | CP.PCM.PN ---
Subjective - Date & Time of Evaluation Date of Evaluation: 04/19/18 Time of Evaluation: 09:00 - Subjective Subjective: going for stress test this am NAD Objective - Vital Signs/Intake and Output Vital Signs (last 24 hours): Temp Pulse Resp BP Pulse Ox 98 F 86 20 106/68 97 04/18/18 23:35 04/19/18 03:38 04/18/18 23:35 04/18/18 23:35 04/18/18 23:35 - Medications Medications: Current Medications Albuterol Sulfate (Albuterol 0.083% Inhal Christin (2.5 Mg/3 Ml) Ud) 2.5 mg INH RQ6 PRN PRN Reason: Shortness of Breath Cyclobenzaprine HCl (Flexeril) 5 mg PO BID PRN PRN Reason: Muscle spasm Last Admin: 04/18/18 20:19 Dose: 5 mg Docusate Sodium (Colace) 100 mg PO BID [facility] Last Admin: 04/18/18 17:41 Dose: 100 mg Gabapentin (Neurontin) 600 mg PO BID [facility] Last Admin: 04/18/18 17:41 Dose: 600 mg Lactulose (Enulose) 20 gm PO [facility] Last Admin: 04/18/18 21:44 Dose: 20 gm Lactulose (Enulose) 20 gm PO Q6H PRN PRN Reason: Constipation Metoprolol Succinate (Toprol Xl) 25 mg PO DAILY [facility] Last Admin: 04/18/18 09:56 Dose: 25 mg Quetiapine Fumarate (Seroquel) 100 mg PO [facility] Last Admin: 04/18/18 21:43 Dose: 100 mg Rosuvastatin Calcium (Crestor) 10 mg PO [facility] Last Admin: 04/18/18 21:43 Dose: 10 mg - Labs Labs: 04/15/18 19:57 04/15/18 19:57 PT 11.6 SECONDS (9.7-12.2) 04/15/18 19:57 INR 1.1 04/15/18 19:57 APTT 31 SECONDS (21-34) 04/15/18 19:57 - Constitutional Appears: Well - Head Exam Head Exam: ATRAUMATIC, NORMAL INSPECTION, NORMOCEPHALIC - Eye Exam Eye Exam: EOMI, Normal appearance, PERRL Pupil Exam: NORMAL ACCOMODATION, PERRL - ENT Exam ENT Exam: Mucous Membranes Moist, Normal Exam - Neck Exam Neck Exam: Full ROM, Normal Inspection. absent: Lymphadenopathy - Respiratory Exam Respiratory Exam: Clear to Ausculation Bilateral, NORMAL BREATHING PATTERN - Cardiovascular Exam Cardiovascular Exam: REGULAR RHYTHM, +S1, +S2. absent: Murmur - GI/Abdominal Exam GI & Abdominal Exam: Soft, Normal Bowel Sounds. absent: Tenderness - Rectal Exam Rectal Exam: NORMAL INSPECTION - Extremities Exam Extremities Exam: Full ROM, Normal Capillary Refill, Normal Inspection. absent: Joint Swelling, Pedal Edema - Back Exam Back Exam: NORMAL INSPECTION - Neurological Exam Neurological Exam: Alert, Awake, CN II-XII Intact, Normal Gait, Oriented x3 - Psychiatric Exam Psychiatric exam: Normal Affect, Normal Mood - Skin Skin Exam: Dry, Intact, Normal Color, Warm Assessment and Plan (1) Chest pain Status: Acute (2) Chronic pain Status: Acute
[2018-04-19] MEDS: Oxycodone/Acetaminophen 5/325 mg Tab PO PRN (13:52)
[2018-04-20] MEDS: Oxycodone/Acetaminophen 5/325 mg Tab PO PRN ×2 (00:40→12:37)
[2018-04-20] MEDS ORDERED: Caffeine Citrated **INJ** 20 MG/ML IV ONE (07:17)
[2018-04-20] MEDS: Metoprolol Succinate 25 mg XL Tab PO SCH (11:04)
--- NOTE | 2018-04-20 12:11 | CP.PCM.PN ---
Subjective - Date & Time of Evaluation Date of Evaluation: 04/20/18 Time of Evaluation: 09:00 - Subjective Subjective: awaiting stress report dr smith on board Objective - Vital Signs/Intake and Output Vital Signs (last 24 hours): Temp Pulse Resp BP Pulse Ox 98.2 F 72 20 103/69 100 04/20/18 07:00 04/20/18 07:00 04/20/18 07:00 04/20/18 07:00 04/20/18 07:00 - Medications Medications: Current Medications Albuterol Sulfate (Albuterol 0.083% Inhal Christin (2.5 Mg/3 Ml) Ud) 2.5 mg INH RQ6 PRN PRN Reason: Shortness of Breath Cyclobenzaprine HCl (Flexeril) 5 mg PO BID PRN PRN Reason: Muscle spasm Last Admin: 04/20/18 11:04 Dose: 5 mg Docusate Sodium (Colace) 100 mg PO BID [facility] Last Admin: 04/20/18 11:03 Dose: 100 mg Gabapentin (Neurontin) 600 mg PO BID [facility] Last Admin: 04/20/18 11:04 Dose: 600 mg Lactulose (Enulose) 20 gm PO [facility] Last Admin: 04/19/18 21:27 Dose: 20 gm Lactulose (Enulose) 20 gm PO Q6H PRN PRN Reason: Constipation Last Admin: 04/19/18 18:06 Dose: 20 gm Metoprolol Succinate (Toprol Xl) 25 mg PO DAILY [facility] Last Admin: 04/20/18 11:04 Dose: 25 mg Oxycodone/Acetaminophen (Percocet 5/325 Mg Tab) 1 tab PO Q12 PRN PRN Reason: Pain, severe (8-10) Stop: 04/22/18 22:01 Last Admin: 04/20/18 00:40 Dose: 1 tab Quetiapine Fumarate (Seroquel) 100 mg PO [facility] Last Admin: 04/19/18 21:27 Dose: 100 mg Rosuvastatin Calcium (Crestor) 10 mg PO [facility] Last Admin: 04/19/18 21:27 Dose: 10 mg - Labs Labs: 04/15/18 19:57 04/15/18 19:57 PT 11.6 SECONDS (9.7-12.2) 04/15/18 19:57 INR 1.1 04/15/18 19:57 APTT 31 SECONDS (21-34) 04/15/18 19:57 - Constitutional Appears: Well - Head Exam Head Exam: ATRAUMATIC, NORMAL INSPECTION, NORMOCEPHALIC - Eye Exam Eye Exam: EOMI, Normal appearance, PERRL Pupil Exam: NORMAL ACCOMODATION, PERRL - ENT Exam ENT Exam: Mucous Membranes Moist, Normal Exam - Neck Exam Neck Exam: Full ROM, Normal Inspection. absent: Lymphadenopathy - Respiratory Exam Respiratory Exam: Clear to Ausculation Bilateral, NORMAL BREATHING PATTERN - Cardiovascular Exam Cardiovascular Exam: REGULAR RHYTHM, +S1, +S2. absent: Murmur - GI/Abdominal Exam GI & Abdominal Exam: Soft, Normal Bowel Sounds. absent: Tenderness - Rectal Exam Rectal Exam: NORMAL INSPECTION - Extremities Exam Extremities Exam: Full ROM, Normal Capillary Refill, Normal Inspection. absent: Joint Swelling, Pedal Edema - Back Exam Back Exam: NORMAL INSPECTION - Neurological Exam Neurological Exam: Alert, Awake, CN II-XII Intact, Normal Gait, Oriented x3 - Psychiatric Exam Psychiatric exam: Normal Affect, Normal Mood - Skin Skin Exam: Dry, Intact, Normal Color, Warm Assessment and Plan (1) Chest pain Status: Acute (2) Chronic pain Status: Acute
[2018-04-21 01:52] VITALS: RESP 20
[2018-04-21] MEDS: Oxycodone/Acetaminophen 5/325 mg Tab PO PRN ×2 (02:16→14:35)
--- NOTE | 2018-04-21 07:52 | CARD ---
APPROVED REPORT Date of service: 04/20/2018 Protocol: LEXISCAN Test Type: LEXISCAN STRESS Test Indications: CP Target HR: 158 bpm Resting ECG: normal Resting Heart Rate: 73 bpm Resting Blood Pressure: 132/80mmHg submaximum (85%): 134 bpm TEST SUMMARY [id number]:02..1.072/.0. PREINFSNHYPERV.05:[id number]/80.0. INFUSIONDOSE 100:300.00.01.074/.0. [id number]:[id number]/80.0. PROCEDURE Pharmacologic stress testing was performed using 0.4mg per 5ml of regadenoson given intravenously over 7-10 seconds. POST EXERCISE Reason for Termination: Protocol Completed Target HR: No Max HR: 74 bpm 62% of Maximum Predicted HR: 158 bpm Exercise duration: 00:30 min:sec, 0 Stage Exercise capacity: 1.0METs Max Blood Pressure: 132/80mmHg Blood Pressure response to exercise: normal resting BP - appropriate response Heart Rate response to exercise: appropriate Chest Pain: No, none Angina index: 0 Arrhythmia: No, none ST Change: No, none Deviation: 0 mm INTERPRETATION Stress EKG Conclusion: NEGATIVE LEXISCAN STRESS TEST NORMAL BP RESPONSE TO LEXISCAN NUCLEAR STUDIES TO BE READ SEPARATELY EXAM: Myocardial Perfusion REST/STRESS Imaging Protocol The imaging protocol used to acquire images was Rest Tc-99m/stress Tc-99m 2 days Rest Spect myocardial perfusion imaging was performed in supine position 45 minutes following the injection of 15.0 mCi of Tc-99 Myoview.Tc-99 Sestamibi. Gated Stress Spect was performed 45 minutes after intravenous 28.0 Tc-99 Sestamibi injection. The images were gated to evaluate regional wall motion and calculate ventricular ejection fraction.Images were reconstructed using backfilter projection method in short horizontal and verticle long axis. Spect slices were generated. RESTING DATA EDV51.26baIY3.60L/min ESV14.00mlMyocardial Bjpe876.00g Av. Heart Rate71.00bpm EF73.00% STRESS DATA EDV37.61gjAW9.60L/min ESV5.00mlMyocardial Mass81.00g EF86.00% Regional WT score at stress:1.00 Regional WM score at stress:0.00 Summed WT score at stress:4.00 Av. Heart Rate82.00bpmSummed WM score at stress:1.00 LV Perf. Quant 17 Seg. SSS1.00 17 Seg. SRS1.00 17 Seg. SDS1.00 Stress Defect Extent (% LAD)0.00Rest Defect Extent (% LAD)0.00Rev. Defect Extent (% LAD)0.00 Stress Defect Extent (% LCX)0.00Rest Defect Extent (% LCX)10.00Rev. Defect Extent (% LCX)0.00 Stress Defect Extent (% RCA)0.00Rest Defect Extent (% RCA)0.00Rev. Defect Extent (% RCA)0.00 Stress Defect Extent (% GHULAM)0.00Rest Defect Extent (% GHULAM)1.70Rev. Defect Extent (% HGULAM)0.00 IMPRESSION Normal Myocardial Perfusion exercise stress study Left Ventricle LV Function:Left ventricle systolic function is normal. The Ejection Fraction is >70%. Metabolism/Perfusion There are no defects. There are no perfusion/metabolism defects. Conclusion 1. There is no stress-induced ischemia. 2. Left ventricle systolic function is normal. 3. The Ejection Fraction is >70%.
[2018-04-21] MEDS: Metoprolol Succinate 25 mg XL Tab PO SCH (09:58)
[2018-04-21] MEDS ORDERED: Lidocaine 5% Patch TD SCH (10:00)
--- NOTE | 2018-04-21 15:57 | CP.PCM.PN ---
Subjective - Date & Time of Evaluation Date of Evaluation: 04/21/18 Time of Evaluation: 14:00 - Subjective Subjective: FIRST OFFICER NOTES patient seen today denies any chest pain, sob, c/o lowerback and knee pain , ongoing chronic pain and has been seeing out patient spine and pain management for chronic pain no overnight events reported by RN vss - stable Objective - Vital Signs/Intake and Output Vital Signs (last 24 hours): Temp Pulse Resp BP Pulse Ox 98.1 F 93 H 20 97/62 L 100 04/21/18 07:00 04/21/18 07:54 04/21/18 07:00 04/21/18 07:00 04/21/18 07:00 Intake and Output: 04/21/18 04/21/18 06:59 18:59 Intake Total 120 300 Balance 120 300 - Medications Medications: Current Medications Cyclobenzaprine HCl (Flexeril) 5 mg PO BID PRN PRN Reason: Muscle spasm Last Admin: 04/21/18 09:58 Dose: 5 mg Docusate Sodium (Colace) 100 mg PO BID [facility] Last Admin: 04/21/18 10:05 Dose: 100 mg Gabapentin (Neurontin) 600 mg PO BID [facility] Last Admin: 04/21/18 09:58 Dose: 600 mg Lactulose (Enulose) 20 gm PO HS [facility] Last Admin: 04/20/18 21:27 Dose: 20 gm Lactulose (Enulose) 20 gm PO Q6H PRN PRN Reason: Constipation Last Admin: 04/20/18 18:45 Dose: 20 gm Lidocaine (Lidoderm) 1 ea TD DAILY [facility] Last Admin: 04/21/18 09:58 Dose: 1 ea Metoprolol Succinate (Toprol Xl) 25 mg PO DAILY [facility] Last Admin: 04/21/18 09:58 Dose: 25 mg Oxycodone/Acetaminophen (Percocet 5/325 Mg Tab) 1 tab PO Q12 PRN PRN Reason: Pain, severe (8-10) Stop: 04/22/18 22:01 Last Admin: 04/21/18 14:35 Dose: 1 tab Quetiapine Fumarate (Seroquel) 100 mg PO HS [facility] Last Admin: 04/20/18 21:27 Dose: 100 mg Rosuvastatin Calcium (Crestor) 10 mg PO HS [facility] Last Admin: 04/20/18 21:27 Dose: 10 mg - Labs Labs: 04/15/18 19:57 04/15/18 19:57 PT 11.6 SECONDS (9.7-12.2) 04/15/18 19:57 INR 1.1 04/15/18 19:57 APTT 31 SECONDS (21-34) 04/15/18 19:57 Assessment and Plan - Assessment and Plan (Free Text) Assessment: A/P 63 year old female PMHx of HLD, chronic back pain, L should pain, L knee pain and muscle spasms admitted with chest pain troponin x3 - negative CT - chest - negative for PE s/p stress test - negative and ef>70 D/w Dr. Ba cleared for discharge home today and f/u with Dr. ba office in 1 week D/w Dr. yoo, cleared for discharge home today RX e prescribed to pharmacy
[2018-04-21 16:15] VITALS: BP 98/65; PULSE 87; TEMP 98.4; O2SAT 97
--- NOTE | 2018-04-21 18:15 | CP.PCM.DIS ---
Provider - Provider Date of Admission: 04/15/18 23:35 Attending physician: Nagi Vargas MD Primary care physician: naila Consults: sarah Time Spent in preparation of Discharge (in minutes): 45 Diagnosis - Discharge Diagnosis (1) Chest pain Status: Acute (2) Chronic pain Status: Acute Hospital Course - Lab Results Lab Results: Most Recent Lab Values WBC 7.0 K/uL (4.8-10.8) 04/15/18 19:57 RBC 3.96 Mil/uL (3.80-5.20) 04/15/18 19:57 Hgb 11.0 g/dL (11.0-16.0) 04/15/18 19:57 Hct 32.6 % (34.0-47.0) L 04/15/18 19:57 MCV 82.3 fL (81.0-99.0) D 04/15/18 19:57 MCH 27.7 pg (27.0-31.0) 04/15/18 19:57 MCHC 33.7 g/dL (33.0-37.0) 04/15/18 19:57 RDW 14.1 % (11.5-14.5) 04/15/18 19:57 Plt Count 275 K/uL (130-400) 04/15/18 19:57 MPV 6.7 fL (7.2-11.7) L 04/15/18 19:57 Neut % (Auto) 33.7 % (50.0-75.0) L 04/15/18 19:57 Lymph % (Auto) 54.8 % (20.0-40.0) H 04/15/18 19:57 [place] % (Auto) 6.9 % (0.0-10.0) 04/15/18 19:57 Eos % (Auto) 3.3 % (0.0-4.0) 04/15/18 19:57 Baso % (Auto) 1.3 % (0.0-2.0) 04/15/18 19:57 Neut # (Auto) 2.4 K/uL (1.8-7.0) 04/15/18 19:57 Lymph # (Auto) 3.9 K/uL (1.0-4.3) 04/15/18 19:57 [place] # (Auto) 0.5 K/uL (0.0-0.8) 04/15/18 19:57 Eos # (Auto) 0.2 K/uL (0.0-0.7) 04/15/18 19:57 Baso # (Auto) 0.1 K/uL (0.0-0.2) 04/15/18 19:57 PT 11.6 SECONDS (9.7-12.2) 04/15/18 19:57 INR 1.1 04/15/18 19:57 APTT 31 SECONDS (21-34) 04/15/18 19:57 Sodium 140 mmol/L (132-148) 04/15/18 19:57 Potassium 4.1 mmol/L (3.6-5.2) 04/15/18 19:57 Chloride 104 mmol/L (98-107) 04/15/18 19:57 Carbon Dioxide 27 mmol/L (22-30) 04/15/18 19:57 Anion Gap 13 (10-20) 04/15/18 19:57 BUN 17 mg/dL (7-17) 04/15/18 19:57 Creatinine 1.3 mg/dL (0.7-1.2) H 04/15/18 19:57 Est GFR ( Amer) 50 04/15/18 19:57 Est GFR (Non-Af Amer) 42 04/15/18 19:57 POC Glucose (mg/dL) 104 mg/dL (65-110) 04/20/18 11:57 Random Glucose 89 mg/dL (65-105) 04/15/18 19:57 Calcium 8.9 mg/dl (8.6-10.4) 04/15/18 19:57 Total Bilirubin 0.5 mg/dL (0.2-1.3) 04/15/18 19:57 AST 66 U/L (14-36) H D 04/15/18 19:57 ALT 28 U/L (9-52) 04/15/18 19:57 Alkaline Phosphatase 92 U/L (38-126) 04/15/18 19:57 Total Creatine Kinase 180 U/L (30-135) H 04/16/18 11:04 CK-MB (Mass) 1.24 ng/mL (0.0-3.38) 04/16/18 11:04 Troponin I < 0.0120 ng/mL (0.00-0.120) 04/16/18 11:04 Total Protein 7.5 g/dL (6.3-8.3) 04/15/18 19:57 Albumin 4.1 g/dL (3.5-5.0) 04/15/18 19:57 Globulin 3.4 gm/dL (2.2-3.9) 04/15/18 19:57 Albumin/Globulin Ratio 1.2 (1.0-2.1) 04/15/18 19:57 - Hospital Course Hospital Course: admitted with severe chest pain and for eval of suitability for spine stimulator for chronic pain requiring us to r/o ACS troponins negative chest pain persisted stress test / nuclear recently completed is negative Cleared by cardio for elective procedure - Date & Time of H&P Date of H&P: 04/21/18 Time of H&P: 11:00 Discharge Exam - Head Exam Head Exam: ATRAUMATIC, NORMAL INSPECTION, NORMOCEPHALIC - Eye Exam Eye Exam: EOMI, Normal appearance, PERRL Pupil Exam: NORMAL ACCOMODATION, PERRL - ENT Exam ENT Exam: TM's Normal Bilaterally - Respiratory Exam Respiratory Exam: Decreased Breath Sounds - Cardiovascular Exam Cardiovascular Exam: REGULAR RHYTHM - GI/Abdominal Exam GI & Abdominal Exam: Normal Bowel Sounds - Rectal Exam Rectal Exam: NORMAL INSPECTION - Exam Exam: NORMAL INSPECTION External exam: NORMAL EXTERNAL EXAM Speculum exam: NORMAL SPECULUM EXAM Bimanual exam: NORMAL BIMANUAL EXAM - Neurological Exam Neurological exam: Alert, CN II-XII Intact, Normal Gait, Oriented x3, Reflexes Normal - Psychiatric Exam Psychiatric exam: Normal Affect, Normal Mood - Skin Skin Exam: Dry, Intact, Normal Color, Warm Discharge Plan - Discharge Medications Prescriptions: Cyclobenzaprine [Flexeril] 5 mg PO BID PRN #30 tab PRN Reason: Muscle Spasm - Follow Up Plan Condition: GOOD Disposition: HOME/ ROUTINE Instructions: Heart Healthy Diet, Chest Pain (DC), Cyclobenzaprine Additional Instructions: Please follow up with Dr. Ba office in 1 week Continue home medication Please follow up with Spine /pain management team please case picker medication from health care pharmacy Referrals: Tenzin Ba MD [Staff Provider] -
--- NOTE | 2018-04-21 18:21 | CP.PCM.PN ---
Subjective - Date & Time of Evaluation Date of Evaluation: 04/19/18 Time of Evaluation: 08:30 - Subjective Subjective: Lexiscan stress test cancelled. Shortage of Myoview isotope. Objective - Vital Signs/Intake and Output Vital Signs (last 24 hours): Temp Pulse Resp BP Pulse Ox 98.4 F 87 20 98/65 L 97 04/21/18 15:00 04/21/18 15:00 04/21/18 15:00 04/21/18 15:00 04/21/18 15:00 Intake and Output: 04/21/18 04/21/18 06:59 18:59 Intake Total 120 300 Balance 120 300 - Labs Labs: 04/15/18 19:57 04/15/18 19:57 PT 11.6 SECONDS (9.7-12.2) 04/15/18 19:57 INR 1.1 04/15/18 19:57 APTT 31 SECONDS (21-34) 04/15/18 19:57 - Constitutional Appears: Non-toxic - Head Exam Head Exam: NORMAL INSPECTION - Eye Exam Eye Exam: absent: Scleral icterus Pupil Exam: PERRL - ENT Exam ENT Exam: Mucous Membranes Moist - Neck Exam Neck Exam: Full ROM - Respiratory Exam Respiratory Exam: Clear to Ausculation Bilateral - Cardiovascular Exam Cardiovascular Exam: REGULAR RHYTHM - GI/Abdominal Exam GI & Abdominal Exam: Soft - Extremities Exam Extremities Exam: absent: Pedal Edema - Neurological Exam Neurological Exam: Alert, Oriented x3 Assessment and Plan - Assessment and Plan (Free Text) Assessment: Atypical chest pain Low back pain Plan: Re-schedule pt for Lexiscan tomorrow
--- NOTE | 2018-04-21 18:24 | CP.PCM.PN ---
Subjective - Date & Time of Evaluation Date of Evaluation: 04/20/18 Time of Evaluation: 08:15 - Subjective Subjective: Lexiscan stress test done. No complication. Objective - Vital Signs/Intake and Output Vital Signs (last 24 hours): Temp Pulse Resp BP Pulse Ox 98.4 F 87 20 98/65 L 97 04/21/18 15:00 04/21/18 15:00 04/21/18 15:00 04/21/18 15:00 04/21/18 15:00 Intake and Output: 04/21/18 04/21/18 06:59 18:59 Intake Total 120 300 Balance 120 300 - Labs Labs: 04/15/18 19:57 04/15/18 19:57 PT 11.6 SECONDS (9.7-12.2) 04/15/18 19:57 INR 1.1 04/15/18 19:57 APTT 31 SECONDS (21-34) 04/15/18 19:57
--- NOTE | 2018-04-21 18:27 | CP.PCM.PN ---
Subjective - Date & Time of Evaluation Date of Evaluation: 04/21/18 Time of Evaluation: 08:00 - Subjective Subjective: no chest pain no sob Lexiscan nuclear studies-negative for ischemia Objective - Vital Signs/Intake and Output Vital Signs (last 24 hours): Temp Pulse Resp BP Pulse Ox 98.4 F 87 20 98/65 L 97 04/21/18 15:00 04/21/18 15:00 04/21/18 15:00 04/21/18 15:00 04/21/18 15:00 Intake and Output: 04/21/18 04/21/18 06:59 18:59 Intake Total 120 300 Balance 120 300 - Labs Labs: 04/15/18 19:57 04/15/18 19:57 PT 11.6 SECONDS (9.7-12.2) 04/15/18 19:57 INR 1.1 04/15/18 19:57 APTT 31 SECONDS (21-34) 04/15/18 19:57 - Constitutional Appears: Non-toxic - Head Exam Head Exam: NORMAL INSPECTION - Eye Exam Eye Exam: absent: Scleral icterus - ENT Exam ENT Exam: Mucous Membranes Moist - Neck Exam Neck Exam: Full ROM - Respiratory Exam Respiratory Exam: Clear to Ausculation Bilateral - Cardiovascular Exam Cardiovascular Exam: REGULAR RHYTHM - GI/Abdominal Exam GI & Abdominal Exam: Soft - Extremities Exam Extremities Exam: absent: Pedal Edema - Neurological Exam Neurological Exam: Alert, Oriented x3 Assessment and Plan - Assessment and Plan (Free Text) Assessment: Non-cardiac chest pain HTN Chronic low back pain Plan: Ok to go home on pain meds.
== END 2018-04-21 18:09 | disposition home or self-care (01) | DRG 313 ==
LOC: C.ER 18:05 → C.6T 23:35
PROVIDERS: ADMIT Internal Medicine; ATTEND Internal Medicine
DX: R07.89 Other chest pain (principal); E78.5 Hyperlipidemia, unspecified; G89.29 Other chronic pain; G47.30 Sleep apnea, unspecified; F41.9 Anxiety disorder, unspecified; I10 Essential (primary) hypertension; J45.909 Unspecified asthma, uncomplicated; F32.9 Major depressive disorder, single episode, unspecified; M54.5 Low back pain

== ENCOUNTER 2018-07-16 13:01 | Emergency (ER) | payer MEDICARE, OTHER ==
[2018-07-16 13:02] VITALS: BMI 29.2
[2018-07-16 13:25] VITALS: RESP 20
[2018-07-16] MEDS ORDERED: Albuterol-Ipratrop 3 mg / 0.5 (3 ml) UD INH STA (13:38)
--- NOTE | 2018-07-16 13:38 | C.PDOC ---
History Of Present Illness This patient is a 63 year old female with a PMHx of Cervical DJD, and chronic pain (has lumbar stimulator) who presents with URI symptoms x 2 days including productive cough, sore throat, chest tightness, generalized body aches, lethargy, subjective fever, headache, chest congestion, nasal congestion, and loss of appetite, and SOB. She denies any chills, chest pain, abdominal pain, nausea, vomiting, changes in bowel habits or urinary symptoms. Patient has being trying to control her symptoms with Mucinex and tynelol Cold/Flu with mild relief. ROS: As stated above PMHx: As stated above PSHx: Neck, Hip, and Left Shoulder Surgery Allergies: Tizanidine (Rash), Unspecified Antibiotic (Rash) SocialHx: Denies tobacco, EtoH and illicit drug use FamHx: HTN, CHF, Thryoid, Gout PMD: Dr. Ba Time Seen by Provider: 07/16/18 13:15 Chief Complaint (Nursing): Cough, Cold, Congestion History Per: Patient Past Medical History Vital Signs: Last Vital Signs Temp 98.3 F 07/16/18 13:07 Pulse 105 H 07/16/18 13:07 Resp 20 07/16/18 13:07 BP 106/73 07/16/18 13:07 Pulse Ox 97 07/16/18 13:07 - Medical History PMH: Anxiety, Arthritis, Back Problems, Bronchitis, Depression, Hypercholesterolemia, Sleep Apnea, Chronic Pain Denies: HIV, HTN, Chronic Kidney Disease, Seizures, Sexually Transmitted Disease Surgical History: Back Surgery - [facility] Procedures INJECT/INFUSE NEC (11/15/13) INTRODUCTION OF SERUM/TOX/VACCINE INTO MUSCLE, PERC APPROACH (09/23/17) Family History: States: Diabetes, Hypertension - Social History Hx Tobacco Use: No Hx Alcohol Use: No Hx Substance Use: No - Immunization History Hx Tetanus Toxoid Vaccination: Yes Hx Influenza Vaccination: Yes Hx Pneumococcal Vaccination: No Review Of Systems Except As Marked, All Systems Reviewed And Found Negative. (As per HPI) Physical Exam - Physical Exam Appears: Non-toxic, No Acute Distress Skin: Normal Color, Warm Head: Atraumatic, Normacephalic Eye(s): bilateral: Normal Inspection Ear(s): Bilateral: Normal Nose: Normal Oral Mucosa: Moist Tongue: Normal Appearing Lips: Normal Appearing Throat: No Exudate, No Mass Neck: Paracervical Tenderness Lymphatic: Adenopathy (Cervical, Anterior) Chest: Tenderness (Left Chest Wall tender to palpation, proximal to sternum) Cardiovascular: Rhythm Regular Respiratory: No Normal Breath Sounds, No Accessory Muscle Use, No Rales, No Rhonchi, Wheezing (B/L, Upper Lungs) Gastrointestinal/Abdominal: Normal Exam, Bowel Sounds, Soft, No Tenderness Pulses: Left Radial: Normal, Right Radial: Normal Neurological/Psych: Oriented x3, Normal Speech ED Course And Treatment O2 Sat by Pulse Oximetry: 97 Medical Decision Making Medical Decision Making: URI Likely Viral Mgmt: Rapid Strep - NEGATIVE Rapid Flu - POSITIVE FOR Influenza Type A DuoNebs ONCE --Reassessment (15:10) Lung Sounds Improved Patient states she feels better 02 Sat 98% on Room Air. Dispo: Patient to follow up with PCP. Will send home with Inhaler, Azithromax and Tamiflu. Disposition - Disposition Referrals: Tenzin Ba MD [Staff Provider] - Disposition Time: 15:17 Condition: GOOD Additional Instructions: Please follow up with your primary physician within 2-3 days of discharge from the E.R Please take medications as instructed and to completion Prescriptions: Albuterol HFA [Ventolin HFA 90 mcg/actuation (8 g)] 2 puff IH [id number] PRN #1 inhaler PRN Reason: Shortness Of Breath Azithromycin [Z-Aldo] 250 mg PO ASDIR #6 tab Oseltamivir Phosphate [Tamiflu] 75 mg PO BID 5 Days #10 capsule Instructions: Influenza (ED), Acute Bronchitis, Child (DC) Forms: [employer] (Turkish) - Clinical Impression Clinical Impression: Influenza A, Bronchitis
[2018-07-16] MEDS ORDERED: Albuterol-Ipratrop 3 mg / 0.5 (3 ml) UD ONE (14:35)
[2018-07-16 15:37] VITALS: BP 106/70; PULSE 79; TEMP 98.8
[2018-07-16 15:40] VITALS: O2SAT 97
== END 2018-07-16 15:50 | disposition home or self-care (01) ==
LOC: C.ER 13:01
DX: J09.X2 Influenza due to identified novel influenza A virus with other respiratory manifestations (principal)

== ENCOUNTER 2018-07-29 13:04 | Emergency (ER) | payer MEDICARE, OTHER ==
[2018-07-29 13:05] VITALS: BMI 29.2
[2018-07-29 13:13] VITALS: BP 133/89; PULSE 94; RESP 18; TEMP 98.5; O2SAT 96
--- NOTE | 2018-07-29 14:07 | C.PDOC ---
History Of Present Illness 63 y/o female presents to the ER complaining of painful lump to right shoulder which has become progressively worse over the past several weeks. Patient states that she was evaluated by her PMD, and he referred her to a surgeon. However, she decided to come to the ER because there was drainage from the lump. Denies having fever, chills, and trauma. Time Seen by Provider: 07/29/18 13:17 Chief Complaint (Nursing): Abnormal Skin Integrity History Per: Patient History/Exam Limitations: no limitations Onset/Duration Of Symptoms: Days Current Symptoms Are (Timing): Still Present Severity: Moderate Past Medical History Reviewed: Historical Data, Nursing Documentation, Vital Signs Vital Signs: Last Vital Signs Temp 98.5 F 07/29/18 13:09 Pulse 94 H 07/29/18 13:09 Resp 18 07/29/18 13:09 BP 133/89 07/29/18 13:09 Pulse Ox 96 07/29/18 13:09 - Medical History PMH: Anxiety, Arthritis, Back Problems, Bronchitis, Depression, Hypercholesterolemia, Sleep Apnea, Chronic Pain Denies: HIV, HTN, Chronic Kidney Disease, Seizures, Sexually Transmitted Disease Surgical History: Back Surgery - [facility] Procedures INJECT/INFUSE NEC (11/15/13) INTRODUCTION OF SERUM/TOX/VACCINE INTO MUSCLE, PERC APPROACH (09/23/17) Family History: States: Diabetes, Hypertension - Social History Hx Tobacco Use: No Hx Alcohol Use: No Hx Substance Use: No - Immunization History Hx Tetanus Toxoid Vaccination: Yes Hx Influenza Vaccination: Yes Hx Pneumococcal Vaccination: No Review Of Systems Except As Marked, All Systems Reviewed And Found Negative. Constitutional: Negative for: Fever, Chills Skin: Positive for: Other (right shoulder lump) Physical Exam - Physical Exam Appears: Non-toxic, No Acute Distress Skin: Normal Color, Warm, Dry, Other (1.5 cm indurated abscess with area of open drainage, mild tenderness, no streaking, no erythema) Head: Atraumatic, Normacephalic Eye(s): bilateral: Normal Inspection, PERRL, EOMI Nose: Normal Oral Mucosa: Moist Neck: Normal ROM, Supple Chest: Symmetrical Cardiovascular: Rhythm Regular, No Friction Rub, No Murmur Respiratory: Normal Breath Sounds, No Rales, No Rhonchi, No Wheezing Gastrointestinal/Abdominal: Soft, No Tenderness Back: Normal Inspection, No CVA Tenderness Extremity: Normal ROM, No Swelling Neurological/Psych: Oriented x3, Normal Speech Gait: Steady ED Course And Treatment O2 Sat by Pulse Oximetry: 96 (RA) Pulse Ox Interpretation: Normal Medical Decision Making Medical Decision Making: Patient states that she is taking antibiotics that were prescribed from the doctor and will continue taking them. Case discussed with . advised that patient be discharged and follow up with surgery outpatient. Disposition - Disposition Referrals: Kevin Saucedo Jr., MD [Staff Provider] - Hunter Olivarez MD [Staff Provider] - Disposition: HOME/ ROUTINE Disposition Time: 14:15 Condition: GOOD Additional Instructions: Apply warm compresses to the region 4 times per day. Follow up with the surgeon within 2-3 days for further evaluation. Instructions: Skin Abscess Forms: [employer] (Tanzanian) - Clinical Impression Clinical Impression: Abscess - PA / [employer] / Resident Statement MD/DO has reviewed & agrees with the documentation as recorded. - Scribe Statement The provider has reviewed the documentation as recorded by the Carri Trejo Provider Attestation All medical record entries made by the Scribe were at my direction and personally dictated by me. I have reviewed the chart and agree that the record accurately reflects my personal performance of the history, physical exam, medical decision making, and the department course for this patient. I have also personally directed, reviewed, and agree with the discharge instructions and disposition.
== END 2018-07-29 14:22 | disposition home or self-care (01) ==
LOC: C.ER 13:04
DX: L02.413 Cutaneous abscess of right upper limb (principal); E78.00 Pure hypercholesterolemia, unspecified

== ENCOUNTER 2018-08-06 16:21 | Emergency (ER) | payer MEDICARE, OTHER ==
[2018-08-06 16:22] VITALS: BMI 29.2
[2018-08-06] MEDS ORDERED: guaiFENesin 100 mg/5 ml Syrup UD PO STA (17:01)
--- NOTE | 2018-08-06 17:02 | C.PDOC ---
History Of Present Illness 63 y/o female pt presents to the ER c/o scratchy voice after viral illness x1 week ago. Pt was prescribed tamiflu which she took. Pt also c/o chronic lower extremity pain. Pt denies cough and SOB. Pt has extensive percocet and valium regimen and installed implanted electronic stimulator device. Pt also has an extensive psychiatric hx. Time Seen by Provider: 08/06/18 16:50 Chief Complaint (Nursing): Pain, Chronic History Per: Patient History/Exam Limitations: no limitations Onset/Duration Of Symptoms: Days Current Symptoms Are (Timing): Still Present Past Medical History Reviewed: Historical Data, Nursing Documentation, Vital Signs Vital Signs: Last Vital Signs Temp 99.2 F 08/06/18 16:32 Pulse 98 H 08/06/18 16:32 Resp 18 08/06/18 16:32 BP 124/87 08/06/18 16:32 Pulse Ox 100 08/06/18 16:32 - Medical History PMH: Anxiety, Arthritis, Back Problems, Bronchitis, Depression, Hypercholesterolemia, Sleep Apnea, Chronic Pain Surgical History: Back Surgery - [facility] Procedures INJECT/INFUSE NEC (11/15/13) INTRODUCTION OF SERUM/TOX/VACCINE INTO MUSCLE, PERC APPROACH (09/23/17) Family History: States: Unknown Family Hx, Diabetes, Hypertension - Social History Hx Tobacco Use: No Hx Alcohol Use: No Hx Substance Use: No - Immunization History Hx Tetanus Toxoid Vaccination: Yes Hx Influenza Vaccination: Yes Hx Pneumococcal Vaccination: No Review Of Systems Except As Marked, All Systems Reviewed And Found Negative. ENT: Positive for: Other (scratchy voice ) Musculoskeletal: Positive for: Other (chronic lower extremity pain ) Physical Exam - Physical Exam Appears: Non-toxic, No Acute Distress, Other (asleep; bizarre ) Skin: Warm, Dry, No Rash Head: Normacephalic Eye(s): bilateral: Other (pinpoint pupils) Oral Mucosa: Moist Throat: Normal Neck: Normal ROM, Supple Chest: Symmetrical Cardiovascular: Rhythm Regular Respiratory: Normal Breath Sounds, No Rales, No Rhonchi, No Wheezing Gastrointestinal/Abdominal: Soft, No Tenderness, No Distention, No Guarding, No Rebound, Other (obese) Back: No CVA Tenderness Extremity: Normal ROM (x4), No Pedal Edema Pulses: Left Dorsalis Pedis: Normal, Right Dorsalis Pedis: Normal Neurological/Psych: Oriented x3, Normal Speech, Normal Cognition, Normal Motor, Normal Sensation Gait: Steady (with cane; baseline) ED Course And Treatment O2 Sat by Pulse Oximetry: 100 (RA) Pulse Ox Interpretation: Normal Medical Decision Making Medical Decision Making: Plans: -- Cori VALE PNP review: percocet 219; valium 205 Pt request MRI on lower extremity although extensive prior study and no new injury or issue. Pt is argumentative and irrational. mild pharyngitis prob viral normal VS speaking incessantly chronic pains, already addressed w extensive Percocet/Valium regimen and implanted stimulator opt f/u with Dr. Ba Disposition Doctor Will See Patient In The: Office Counseled Patient/Family Regarding: Studies Performed, Diagnosis - Disposition Referrals: Tenzin Ba MD [Staff Provider] - Disposition: HOME/ ROUTINE Disposition Time: 17:02 Condition: GOOD Additional Instructions: continue cough medicines as needed mild pharyngitis is part of viral syndrome and will resolve in a few days. follow-up with Dr. Ba Instructions: Viral Pharyngitis, Sore Throat in Adults Forms: [employer] (Greenlandic) - Clinical Impression Clinical Impression: Pharyngitis - Scribe Statement The provider has reviewed the documentation as recorded by the Scribe Shi Do Provider Attestation: All medical record entries made by the Scribe were at my direction and personally dictated by me. I have reviewed the chart and agree that the record accurately reflects my personal performance of the history, physical exam, medical decision making, and the department course for this patient. I have also personally directed, reviewed, and agree with the discharge instructions and disposition.
[2018-08-06] MEDS ORDERED: guaiFENesin 100 mg/5 ml Syrup UD ONE (17:19)
[2018-08-06 17:29] VITALS: BP 124/78; PULSE 74; RESP 19; TEMP 99
[2018-08-06 17:31] VITALS: O2SAT 100
== END 2018-08-06 17:29 | disposition home or self-care (01) ==
LOC: C.ER 16:21
DX: J02.9 Acute pharyngitis, unspecified (principal)

== ENCOUNTER 2018-08-19 22:35 | Emergency (ER) | payer MEDICARE, OTHER | END 2018-08-20 00:53 | disposition home or self-care (01) | LOC: C.ER 08-20 00:53 ==

== ENCOUNTER 2018-10-18 07:55 | Emergency (ER) | payer MEDICARE, OTHER ==
[2018-10-18 07:55] VITALS: BMI 29.2
[2018-10-18 08:11] VITALS: TEMP 98.7
--- NOTE | 2018-10-18 08:13 | C.PDOC ---
History Of Present Illness 63 year old female with PMHx of back surgery, anxiety, chronic pain, hyperlipidemia, depression, arthritis, and recent negative stress test 6 months prior presents to ED with complaint of chest pain and diffuse body aches for the past 4 days. Patient states that the diffuse body aches are her chief complaint and began after she [place] the [place] 4 [place]. She states that she landed on her right prosthetic hip. She notes that she was able to walk and stand afterwards, but noted worsened chronic back pain. She also notes bilateral shoulder and right knee pain since that fall. Patient also complains of chest tightness that began yesterday. She describes the pain as a throbbing with no radiation that worsens when she eats certain food. Patient states that she has been taking flexeril and gabapentin over the past 4 days without much relief. She states that she has not taken any pain medication today. She denies shoulder pain. knee pain and neck pain at this time, nausea, vomiting, constipation, diarrhea, dark/bloody stool, vaginal bleeding, vaginal discharge, hematuria, dysuria, frequency, SOB, and leg swelling. She denies any enuresis, encoparesis or loss of sensation in her legs. Time Seen by Provider: 10/18/18 08:10 Chief Complaint (Nursing): Chest Pain History Per: Patient History/Exam Limitations: no limitations Onset/Duration Of Symptoms: Days (4) Current Symptoms Are (Timing): Still Present Quality: Tightness, "Pain" Associated Symptoms: denies: Nausea, Dyspnea Past Medical History Reviewed: Historical Data, Nursing Documentation, Vital Signs Vital Signs: Last Vital Signs Temp 98.7 F 10/18/18 08:01 Pulse 89 10/18/18 08:01 Resp 16 10/18/18 08:01 BP 115/83 10/18/18 08:01 Pulse Ox 100 10/18/18 08:01 Primary Care Provider: Tenzin Ba - Medical History PMH: Anxiety, Arthritis, Back Problems, Bronchitis, Depression, Hypercholesterolemia, Sleep Apnea, Chronic Pain Denies: HIV, HTN, Chronic Kidney Disease, Seizures, Sexually Transmitted Disease Surgical History: Back Surgery - [facility] Procedures INJECT/INFUSE NEC (11/15/13) INTRODUCTION OF SERUM/TOX/VACCINE INTO MUSCLE, PERC APPROACH (09/23/17) Family History: States: Diabetes, Hypertension - Social History Hx Tobacco Use: No Hx Alcohol Use: No Hx Substance Use: No - Immunization History Hx Tetanus Toxoid Vaccination: Yes Hx Influenza Vaccination: Yes Hx Pneumococcal Vaccination: No Review Of Systems Constitutional: Positive for: Malaise. Negative for: Fever, Chills, Sweats, Weakness Eyes: Negative for: Pain, Vision Change, Eyelid Inflammation, Redness ENT: Negative for: Ear Pain, Ear Discharge, Nose Pain, Nose Congestion, Mouth Pain, Mouth Swelling, Throat Pain Cardiovascular: Positive for: Chest Pain. Negative for: Palpitations, Edema Respiratory: Negative for: Cough, Shortness of Breath, SOB with Excertion, Pleuritic Pain, Sputum, Wheezing Gastrointestinal: Negative for: Nausea, Vomiting, Abdominal Pain, Diarrhea, Constipation, Melena, Hematochezia Genitourinary: Negative for: Dysuria, Frequency, Hematuria, Vaginal Discharge, Vaginal Bleeding Musculoskeletal: Positive for: Back Pain, Leg Pain (right hip pain ). Negative for: Neck Pain, Shoulder Pain, Arm Pain, Hand Pain, Other (leg swelling) Skin: Negative for: Rash, Lesions, Jaundice, Bruising Neurological: Negative for: Weakness, Numbness, Incoordination, Change in Speech, Confusion, Altered Mental Status, Headache, Dizziness Psych: Negative for: Depression, Psychosis, Suicidal ideation Physical Exam - Physical Exam Appears: Well, Non-toxic, No Acute Distress Skin: Normal Color, Warm, Dry Head: Atraumatic, Normacephalic Eye(s): bilateral: Normal Inspection, PERRL, EOMI Ear(s): Bilateral: Normal Oral Mucosa: Moist Tongue: Normal Appearing Lips: Swelling Teeth: Normal Dentition Gingiva: Normal Appearing Throat: Normal, No Erythema, No Exudate Neck: Normal ROM, Trachea Midline, No Midline Cervical Tenderness, No Paracervical Tenderness, Supple, No Other ( meningeal signs- negative kernig's and brudzinskis) Chest: Symmetrical, No Deformity, No Tenderness, Other (reproducible chest pain on palpation along the sternum ) Cardiovascular: Rhythm Regular, No Friction Rub Respiratory: No Rales, No Rhonchi, No Wheezing Gastrointestinal/Abdominal: Soft, No Tenderness, No Distention Back: No CVA Tenderness, No Vertebral Tenderness, No Decreased ROM, No Muscle Spasm, Paraspinal Tenderness (paralumbar tenderness) Extremity: Normal ROM, Tenderness (right hip tender to palpation along the lateral aspect, bilateral knees nontender), No Calf Tenderness, Capillary Refill (<2 seconds), Other (neurovascular intact) Extremity: Bilateral: Atraumatic, Normal Color And Temperature, Normal ROM Pulses: Left Dorsalis Pedis: Normal, Right Dorsalis Pedis: Normal Neurological/Psych: Oriented x3, Normal Speech, Normal Cognition, Normal Cranial Nerves, No Cerebellar Signs, Normal Motor (5/5 strength in the bilateral lower extremities and upper extemities), Normal Sensation Gait: Steady Extremity: Right: No Drift, Left: No Drift, Upper: No Drift, Lower: No Drift ED Course And Treatment - Laboratory Results Result Diagrams: 10/18/18 09:04 10/18/18 09:04 ECG: Interpreted By Me, Viewed By Me ECG Rhythm: Sinus Rhythm ECG Interpretation: Normal Interpretation Of ECG: No STEMI. Rate From EC O2 Sat by Pulse Oximetry: 100 (in RA) Pulse Ox Interpretation: Normal Medical Decision Making Medical Decision Making: Impression: 63 year old female with PMHx of back surgery, anxiety, chronic pain, hyperlipidemia, depression, arthritis, and recent negative stress test 6 months prior presents to ED with complaint of chest pain and diffuse body aches for the past 4 days. No head impact or blood thinner usage. No cauda equina signs or symptoms. Fully n/v intact in all extremities w/ strong steady gait. Chest pain, reproducible to palpation to sternum. Has had negative lexiscan per previous notes 6 months prior. Heart score age: 1 rf: 1 story:0 ek troponin Initial Plan: EKG CXR Right hip and with pelvis X-ray LS spine X-ray Labs ordered with CMP, troponin, and CBC Percocet IV fluids MDM: Likely musculoskeletal ache 8 Xrays largely unremarkable per my read labs unremarkable 2302 pt endroses CP resolution, low risk heart score Appreciate consult w/ Dr. Ba, to follow up outpt Pt states she would like a flexiril before she leaves. She endorses that will help her pain go away steady, stable, strong ait Clear for d/c home with return indications and f/u Disposition - Disposition Referrals: Tenzin Ba MD [Staff Provider] - Valerie Lee MD [Staff Provider] - Christina Montesinos MD [Staff Provider] - [facility] [Outside] [facility] [Outside] [facility] [Outside] Disposition: HOME/ ROUTINE Disposition Time: 11:04 Condition: STABLE Additional Instructions: CHANELLE FERNANDES, thank you for letting us take care of you today. Your provider was Florentino Marcelo and you were treated for TIGHTNESS IN CHEST/LOWER BACK PAIN. The emergency medical care you received today was directed at your acute symptoms. If you were prescribed any medication, please fill it and take as directed. It may take several days for your symptoms to resolve. Return to the Emergency Depa rtment if your symptoms worsen, do not improve, or if you have any other problems. Please contact your doctor or call one of the physicians/clinics you have been referred to that are listed on the Patient Visit Information form that is included in your discharge packet. Bring any paperwork you were given at discharge with you along with any medications you are taking to your follow up visit. Our treatment cannot replace ongoing medical care by a primary care provider outside of the emergency department. Thank you for allowing the [employer] team to be part of your care today. If you had an X-Ray or CT scan: A Radiologist will review the ED reading if any change in treatment is needed we will contact you. If you had a blood, urine, or wound culture: It will take several days for the results, if any change in treatment is needed we will contact you. If you had an STI test: It will take 48 hours for the results. Please call after 1 week if you have not heard back. Instructions: Chest Pain (DC), Muscle Spasms (DC), Muscle and Bone Pain (DC), Preventing Falls Forms: [employer] (Mongolian) - Clinical Impression Clinical Impression: Chest pain, Muscular aches, Muscle spasm, Fall - Scribe Statement The provider has reviewed the documentation as recorded by the Scribe (Ayse Sellers) All medical record entries made by the Scribe were at my direction and personally dictated by me. I have reviewed the chart and agree that the record accurately reflects my personal performance of the history, physical exam, medical decision making, and the department course for this patient. I have also personally directed, reviewed, and agree with the discharge instructions and disposition.
[2018-10-18] MEDS ORDERED: Oxycodone/Acetaminophen 5/325 mg Tab PO STA (08:40)
[2018-10-18] MEDS ORDERED: Sodium Chloride 0.9% 1,000 ML IV SCH (08:45)
[2018-10-18] MEDS ORDERED: Sodium Chloride 0.9% 1,000 ML ONE (08:48)
[2018-10-18] MEDS ORDERED: Oxycodone/Acetaminophen 5/325 mg Tab ONE (08:48)
[2018-10-18 09:18] LABS: BASO # 0.1 K/uL (0.0-0.2); BASO % 1.3 % (0.0-2.0); EOS # 0.1 K/uL (0.0-0.7); EOS % 2.1 % (0.0-4.0); HEMOGLOBIN 11.6 g/dL (11.0-16.0); LYMPH # 3.2 K/uL (1.0-4.3); LYMPH % 45.7 % (20.0-40.0); MEAN CORPUSCULAR HEMOGLOBIN 28.1 pg (27.0-31.0); MEAN CORPUSCULAR HGB CONC 33.2 g/dL (33.0-37.0); MEAN PLATELET VOLUME 6.2 fL (7.2-11.7); MONO # 0.4 K/uL (0.0-0.8); MONO % 5.8 % (0.0-10.0); NEUT # 3.2 K/uL (1.8-7.0); NEUT % 45.1 % (50.0-75.0); NRBC % 0.1 % (0.0-2.0); RBC 4.14 Mil/uL (3.80-5.20); RED CELL DISTRIBUTION WIDTH 16.3 % (11.5-14.5); WHITE BLOOD COUNT 7.1 K/uL (4.8-10.8)
[2018-10-18 09:22] LABS: MEAN CELL VOLUME 84.7 fL (81.0-99.0)
[2018-10-18 09:34] LABS: ALB/GLOB RATIO 1.1 (1.0-2.1); ALT/SGPT 47 U/L (9-52); AST/SGOT 32 U/L (14-36); BLOOD UREA NITROGEN 15 mg/dL (7-17); CALCIUM 9.3 mg/dl (8.6-10.4); GFR NON-AFRICAN AMERICAN 50; LIPASE 90 U/L (23-300)
[2018-10-18 11:03] VITALS: BP 127/83; PULSE 60; RESP 18
[2018-10-18 11:04] VITALS: O2SAT 100
--- NOTE | 2018-10-18 11:19 | RAD ---
Date of service: 10/18/2018 PROCEDURE: Radiographs of the Lumbar Spine. HISTORY: chronic pain COMPARISON: No prior. TECHNIQUE: 5 views obtained. FINDINGS: BONES: No acute compression fractures no retropulsed fragments. Vertebral bodies exhibit normal stature. Discectomy changes seen at the L4-L5 and L5-S1 levels with bilateral López rods attached to the right and left pedicles of the L4, L5 and S1 segments. Hardware appears intact with no evidence of loosening or infection.. There appears to be posterior osteophytic ridge formation at the L4-L5 disc space level. Facets also hypertrophic at L5-S1 and L4-L5 levels. Interval placement a stimulator battery pack and electrodes new since prior study. OTHER FINDINGS: Interval right total hip replacement. IMPRESSION: Discectomy fusion L4-L5 and L5-S1 levels with posterior fixation L4, L5 and S1 levels as above. Hardware intact. Interval placement of a pain stimulator hardware. Degenerative spondylosis is present as above. Interval right total hip replacement.
--- NOTE | 2018-10-18 11:40 | RAD ---
Date of service: 10/18/2018 HISTORY: Chest pain COMPARISON: 08/19/2018. TECHNIQUE: Chest PA and lateral FINDINGS: LINES AND TUBES: None. LUNG AND PLEURA: The lungs are well inflated and clear. No pleural effusion or pneumothorax. HEART AND MEDIASTINUM: There is mild cardiomegaly. No aortic atherosclerotic calcifications present. The hilar and mediastinal contours are within normal limits. SKELETAL STRUCTURES: The bony structures are within normal limits for the patient's age. VISUALIZED UPPER ABDOMEN: Normal. OTHER FINDINGS: A neurostimulator overlies the thoracic spine. IMPRESSION: No active pulmonary disease.
--- NOTE | 2018-10-18 13:34 | RAD ---
PROCEDURE: Right Hip Radiographs. HISTORY: slip and fall COMPARISON: None. TECHNIQUE: 3 views obtained. FINDINGS: BONES: The pelvic ring is intact. There is no acute displaced fracture or bone destruction. Bone alignment is normal. JOINTS: Status post total right hip arthroplasty. No evidence for skin hardware complications or dislocation. 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 SOFT TISSUES: Postsurgical changes versus myositis ossifications superior to the right greater trochanter. OTHER FINDINGS: None. IMPRESSION: No acute displaced fracture or dislocation. Please note occult fractures cannot be excluded on plain radiographs.
--- NOTE | 2018-10-21 03:38 | CARD ---
APPROVED REPORT Date of service: 10/18/2018 EKG Measurement Heart [id number] <Conclusion> Normal sinus rhythm Possible Left atrial enlargement Left ventricular hypertrophy Cannot rule out Septal infarct, age undetermined Abnormal ECG
== END 2018-10-18 11:27 | disposition home or self-care (01) ==
LOC: C.ER 07:55
DX: R07.9 Chest pain, unspecified (principal); M62.838 Other muscle spasm; W01.0XXA Fall on same level from slipping, tripping and stumbling without subsequent striking against object, initial encounter; Y92.59 Other trade areas as the place of occurrence of the external cause; E78.00 Pure hypercholesterolemia, unspecified; M19.90 Unspecified osteoarthritis, unspecified site; Z96.641 Presence of right artificial hip joint
CPT/HCPCS: 71046; 72100; 73502; 80053; 82550; 83690; 84484; 85025; 99285; J7030